=== PATIENT | male | born 1970 | race Caucasian/White ===

== ENCOUNTER 2017-11-28 04:09 | Inpatient (IN) ==
[2017-11-28] MEDS ORDERED: Aspirin 81 MG TAB.CHEW PO ONE (04:17)
[2017-11-28] MEDS ORDERED: *HR* Heparin 5,000 UNIT/ML VIAL IVP ONE (04:17)
[2017-11-28] MEDS ORDERED: 0.9 % Sodium Chloride 1,000 ML IVC ONE (04:17)
[2017-11-28] MEDS ORDERED: *HR* Ticagrelor 90 MG TABLET PO ONE (04:17)
[2017-11-28] MEDS ORDERED: *HR* Heparin 5,000 UNIT/ML VIAL IVP PRN ×2 (04:17)
[2017-11-28] MEDS ORDERED: *HR* Ticagrelor 90 MG TABLET ONE (04:17)
[2017-11-28] MEDS ORDERED: 0.9 % Sodium Chloride 1,000 ML ONE (04:18)
[2017-11-28] MEDS ORDERED: Aspirin 81 MG TAB.CHEW ONE (04:18)
[2017-11-28] MEDS ORDERED: *HR* Heparin 5,000 UNIT/ML VIAL ONE (04:18)
--- NOTE | 2017-11-28 04:24 | Emergency Department Note ---
Disposition Clinical Impression: ST elevation myocardial infarction (STEMI) Qualifiers: Involved coronary artery: unspecified coronary artery Qualified Code(s): I21.3 - ST elevation (STEMI) myocardial infarction of unspecified site Disposition: Admitted As Inpatient Condition: Serious Referrals: Lisa Camacho D[facility]NER [Primary Care Provider] - Forms: ED Satisfaction Letter Chest Pain HPI - General Chief Complaint: ED Chest Pain Stated Complaint: Chest Pain Time Seen by Provider: 11/28/17 04:17 Source: patient Mode of arrival: private vehicle Limitations: no limitations Vital Signs Reviewed: Yes Nursing Notes Reviewed: Yes - History of Present Illness HPI Narrative: 47-year-old male history of alcohol use, diabetes who presents to the ER with a chief complaint of chest pain. Patient states onset of symptoms roughly 1 hour ago whenever he was out drinking. Describes it as pain in the center of his chest as well as shortness of breath and nausea. Denies prior history of cardiac disease. Onset (ago): hour(s) Duration: constant Onset: during rest Pain Location: substernal Severity: moderate Severity scale (1-10): 5 Pain Radiation: none Improves with: nothing Worsens with: nothing - Related Data Home Medications Medication Instructions Recorded Confirmed metFORMIN [Glucophage] 500 mg PO BID PRN 09/02/16 06/03/17 Mv,Minerals/FA/Lycopene/Ginkgo 1 tab PO DAILY 06/03/17 06/03/17 [One Daily For Men 50+ Adv Tab] Previous Rx's Medication Instructions Recorded HYDROcodone/Acet 5/325 mg [Apache 2 tab PO Q4H PRN #15 tab 06/03/17 5-325 mg] Allergies Allergy/AdvReac Type Severity Reaction Status Date / Time No Known Allergies Allergy Verified 06/03/17 13:03 All systems ED: reviewed and negative except as stated. Cardiovascular: Reports: chest pain Respiratory: Reports: dyspnea. Denies: cough Gastrointestinal: Reports: nausea. Denies: abdominal pain, vomiting Chest Pain PMH - Past Medical History Medical history: Reports: diabetes, other Surgical history: Reports: other Psychiatric history: Reports: no psych history - Social History Smoking Status: Current every day smoker Alcohol use: Reports: none Drug use: Reports: none Physical Exam - General Limitations: no limitations General appearance: alert, in no apparent distress - Head Head exam: atraumatic, normocephalic - Eye Eye exam: Present: normal appearance - ENT ENT exam: normal exam - Neck Neck exam: Present: normal inspection - Chest Chest inspection: Present: normal inspection, symmetric chest wall rise - Respiratory Respiratory exam: Present: normal lung sounds bilaterally - Cardiovascular Cardiovascular exam: Present: normal rhythm, tachycardia, normal heart sounds - Abdominal Exam Abdominal exam: Present: soft, Non-Tender. Absent: tenderness - Extremities Exam Extremities exam: Present: normal inspection, full ROM - Expanded Upper Extremity Exam Shoulder exam: Present: normal inspection, full ROM Arm exam: Present: normal inspection, full ROM Elbow exam: Present: normal inspection, full ROM Forearm/Wrist exam: Present: normal inspection, full ROM Hand exam: Present: normal inspection, full ROM - Expanded Lower Extremity Exam Hip/Pelvis exam: Present: normal inspection, full ROM Upper leg exam: Present: normal inspection, full ROM Knee exam: Present: normal inspection, full ROM Lower leg exam: Present: normal inspection, full ROM Ankle exam: Present: normal inspection, full ROM Foot/toe exam: Present: normal inspection, full ROM - Skin Skin exam: Present: warm, dry Course Course Narrative: STEMI alert called at 19:14. Plan to speak with the rn family , chest x-ray, labs, aspirin, Brilinta, heparin and nitroglycerin drips. - Consultations Consultation #1: Dr. Barragan rn family paged. Time: 04:21 Consultation #2: Spoke with the rn family Dr. Barragan discussed patient's history and exam EKG findings and current interventions. He will be in for [facility] intervention. Time: 04:32 Vital Signs Temperature 97.3 F L 11/28/17 04:13 Pulse Rate 111 11/28/17 04:13 Respiratory Rate 22 11/28/17 04:13 Blood Pressure 166/111 11/28/17 04:13 O2 Sat by Pulse Oximetry 99 11/28/17 04:13 Temperature 97.3 F L 11/28/17 04:13 Pulse Rate 117 11/28/17 04:27 Respiratory Rate 20 11/28/17 04:27 Blood Pressure 164/123 11/28/17 04:27 O2 Sat by Pulse Oximetry 100 11/28/17 04:27 Oxygen Delivery Oxygen Delivery Room Air Chest Pain - MDM Narrative Medical decision making narrative: 47-year-old male with chest pain for one hour. History of alcohol use and diabetes. Dyspnea chest pain diaphoresis and nausea here. EKG with inferior wall STEMI. Hypotensive on arrival. Patient given aspirin, Brilinta, heparin and nitroglycerin drips. Case discussed with the rn family. Plan to go to the [facility] emergently for intervention. - EKG Data EKG attestation: Yes I reviewed and interpreted this EKG. EKG results narrative: EKG demonstrates tachycardia with a rate of 110. Prolonged QRS ration of 133. There are significant ST elevations in the inferior leads with reciprocal significant ST depressions in the anterior leads. STEMI Heart Score - Score History: Highly Suspicious EKG: Significant ST-Depression Age: 45-65 Risk Factors: 1-2 risk factors Troponin: Less than normal limit HEART Score Total: 6 Attestation Statement - Attestation Attestation: I examined this patient and my medical decision-making was reviewed with the Resident Physician. I agree with the documented findings, disposition and treatment plan as described except to the extent set forth below. Patient presents with inferior wall STEMI. Reports all call use this evening. Aspirin , heparin, [place], nitroglycerin infusion.
[2017-11-28] MEDS: Nitroglycerin 25 MG/250 ML INFUS..BTL IVC SCH (04:32)
[2017-11-28] MEDS: Heparin 25,000 UNIT/500 ML D5W 25,000 UNIT/500 ML BAG IVC SCH (04:33)
[2017-11-28 04:43] LABS: Basophils # 0.1 K/mcL (0.0-0.2); Basophils % 0.3 %; Hematocrit 47.9 % (37.5-50.1); Hemoglobin 15.4 g/dL (12.9-16.9); Immature Granulocytes % 0.3 % (0-4); Lymphocytes # 1.7 K/mcL (0.6-4.6); Lymphocytes % 8.9 %; Mean Corpuscular HGB Conc 32.2 g/dL (31.6-35.5); Mean Corpuscular Hemoglobin 27.3 pg (28.0-33.3); Mean Corpuscular Volume 84.8 fL (83.0-100.0); Mean Platelet Volume 9.9 fL (9.4-12.4); Monocytes # 0.6 K/mcL (0.0-1.3); Monocytes % 3.3 %; Neutrophils # 16.1 K/mcL (1.6-8.9); Platelet Count 282 K/mcL (140-400); Red Blood Count 5.65 M/mcL (4.19-5.50); Segmented Neutrophils % 87.2 %
[2017-11-28 04:47] LABS: INR 1.1; Prothrombin Time 12.1 Seconds (9.4-12.1)
[2017-11-28] MEDS ORDERED: *HR* Heparin 10,000 UNIT/10 ML VIAL ONE (04:49)
[2017-11-28] MEDS ORDERED: 0.9 % Sodium Chloride 2,000 ML ONE (04:49)
[2017-11-28] MEDS ORDERED: Heparin 1,000 UNITS/500 mL 500 ML ONE (04:49)
[2017-11-28 04:50] LABS: Activated Partial Thrombo Time 38.2 Seconds (26.0-36.0)
[2017-11-28] MEDS ORDERED: Nitroglycerin 1,000 MCG/10 ML VIAL IV ONE (04:50)
[2017-11-28] MEDS ORDERED: ISOVUE-370 200 ML INFUS..BTL IV ONE (04:50)
[2017-11-28 05:10] LABS: Troponin I 0.04 ng/mL (< 0.04)
[2017-11-28] MEDS ORDERED: *HR* Midazolam HCl 2 MG/2 ML VIAL ONE (05:21)
[2017-11-28 05:22] LABS: BUN/Creatinine Ratio 15 (6-26); Blood Urea Nitrogen 13 mg/dL (6-20); Calcium 9.9 mg/dL (8.6-10.3); Carbon Dioxide 23 mEq/L (23-29); Chloride 99 mEq/L (98-107); Glucose 155 mg/dL (70-105); Magnesium 1.7 mg/dL (1.6-2.6); Osmolality,Calculated 281 (280-300); Potassium 4.3 mEq/L (3.5-5.1); Sodium 134 mEq/L (136-145); eGFR For African Americans > 60 (> 60); eGFR For Non-African Americans > 60 (> 60)
--- NOTE | 2017-11-28 06:13 | Pre-Sedation Evaluation ---
Pre-sedation evaluation - Pre-sedation checklist Date of procedure: 11/28/17 Procedure: left heart cath, possible PCI Recent Vitals: Last Vital Signs Temp 97.3 F L 11/28/17 04:13 Pulse 104 11/28/17 04:55 Resp 25 11/28/17 05:00 BP 163/119 11/28/17 05:00 Pulse Ox 100 11/28/17 04:55 H&P (including ROS) documented in medical record: Yes (Pre sedation, H&P performed prior to procedure, documented post procedure ) Airway Assessment: Patient can open mouth completely, TMJ function normal Dentition: No loose teeth or bridges Possible difficult airway: No ASA Classification *see protocol: CLASS IV-Severe systemic disease/constant threat to pt's life Plan of Care: Pt appropriate candidate for procedure/moderate/conscious sedation , Risks/benefits of procedure/sedation discussed w/ patient/family, If not NPO; Risk of intake outweiged by necessity to perform procedure
--- NOTE | 2017-11-28 06:15 | Invasive Diagnostic Lab Proc ---
Name: Glenn Herbert Date of Study: 11/28/2017 Date: 1970 Ht: 74.0in Medical Record#: [id number] Age: 47 Wt: 264.55lb Gender: Male BSA: 2.45 Order #: [id number] BMI: 33.97 Physicians Procedure Physician: Naveed Barragan DO Referring MD: Lisa Camacho CNP Referring MD: Staff Name Position Time In Marvin Alves RN Monitor 05:03 AM Shaila Barajas RT (R) Scrub 05:03 AM Rodrick Rodriguez RN Manufacturers Representative 05:03 AM Indications Indication STEMI Procedures Performed Procedure PRQ CARD REVASC TX 1 VSL Pre-Procedure Checklist Informed consent is complete signed and on chart. H&P is on chart. ID band is on and ID verified with patient. Pt not NPO for procedure and MD aware. The procedure was described for the patient and questions were answered. Blood Pressure: 108/58 ECG is on chart. Rhythm: Sinus Tachycardia Plan of Care Patient will tolerate the procedure without complications. Adequate level of comfort will be maintained. Hemodynamics will remain stable Patient will recover from procedure without complications. Respiratory function will be maintained. Cardiac rhythm will remain stable. Patient temperature will be maintained. Patient and/or family have verbalized understanding of the procedure. Patient Education Chief Complaint/Reason for Test: Cardiac Cath Developmental Category: Adult (18-64 years) Developmentally Appropriate for Age: Yes Learning Barriers: None Education Needs: Procedure Education Method: Verbal Information Taught: Cardiac Cath Educational Evaluation: Able to repeat information Intravenous Access Time IV Size Location DC'd Fluid/Drip Rate Units RN 18g 1 1/4" Patent On Arrival Rt Antecubital Rodrick Rodriguez RN 18g 1 1/4" Patent On Arrival Lt upper arm 0.9NaCl 25 ml/hr Rodrick Rodriguez RN Allergies NKA Vital Signs Time BP (mmHg) HR (bpm) O2 Sat. RR (bpm) LOC 05:14 AM / % 5 = Fully awake and oriented or at pre-proc level 05:14 AM / % 4 = Oriented but drowsy 05:29 AM / % 4 = Oriented but drowsy 05:07 AM 108 / 58 101 100 % 05:13 AM 160 / 113 103 100 % 05:17 AM 153 / 119 102 100 % 05:22 AM 148 / 111 103 100 % 05:27 AM 154 / 120 101 100 % 05:32 AM 153 / 112 98 100 % 05:37 AM 131 / 94 94 97 % 05:42 AM 132 / 95 88 97 % 05:47 AM 134 / 89 89 98 % 05:52 AM 125 / 92 93 98 % Procedural Medications Time Medication Dose Units Method Given By 05:12 AM Oxygen 2 L/min nasal cannula Rodrick Rodriguez RN 05:20 AM Lidocaine 2% 10 ml Subcutaneous Naveed Barragan DO 05:22 AM Versed 1 mg Intravenous Rodrick Rodriguez RN 05:31 AM Heparin 3000 units Intravenous Rodrick Rodriguez RN 05:05 AM Nitroglycerin 5 mcg/min Intravenous Rodrick Rodriguez RN 05:34 AM Nitroglycerin 100 mcg Intracoronary Naveed Barragan DO ASA Classification: Emergent Procedure: ASA score is assumed Osmin Score Preprocedure Postprocedure Activity 2- Moves 4 extremities sustained head lift Activity Circulation 2- SBP +/= 20 points of pre-anesthetic level Circulation Consciousness 2- Awake and alert oriented x 3 Consciousness O2 Saturation 2- Able to maintain O2 satruation of 92% on room air O2 Saturation Respiratory 2- Able to deep breathe and cough well Respiratory Total Score 10 Total Score Contrast Agent: Isovue Diagnostic Contrast: 160 ml Total Contrast: 160 ml Fluoro Dose: 1210 mGy Activated Clotting Time Time Seconds to Clot 05:31 AM 188 05:49 AM 400 05:56 AM 178 Procedure Log Time Note Enter By 04:54 AM CathStat 05:03 AM Pt arrived to cardiovascular lab director 2 at 05:03 csmith 05:03 AM Marvin Alves RN Position: Monitor Time in: 05:03 csmith 05:03 AM Shaila Barajas RT (R) Position: Scrub Time in: 05:03 csmith 05:03 AM Rodrick Rodriguez RN Position: Manufacturers Representative Time in: 05:03 csmith 05:03 AM Patient charges- Angio tray pack, Navilyst 3mm J, Pulse Oximetry and ACIST tubing and transducer csmith 05:05 AM Time: 05:05 Nitroglycerin 5 mcg/min Intravenous Given by Rodrick Rodriguez RN csmith 05:07 AM Vitals capture started with the following parameters, Patient=Adult, Interval=5 min, Initial Byqijeir=148 mmHg, Deflation Rate=5 mmHg, Cuff placed on Right Arm 05:07 AM DU=736 bpm, OYTV=748/58 mmhg, AkN3=531.0 %, Comment=st 05:10 AM Recorded ECG: WQ=818 Condition=Condition 1 05:13 AM Recorded ECG: IT=676 Condition=Condition 1 05:13 AM Time: 05:12 Oxygen on at 2 L/min per nasal cannula by Rodrick Rodriguez RN csmith 05:13 AM RV=954 bpm, KZZX=108/113 mmhg, NmD9=057.0 % 05:14 AM Time: 05:14 Patient comfortable and pain free: Yes csmith 05:14 AM Hair removed from procedure site in procedure lab using clippers. Bilateral groin prepped with Chloraprep by Marvin Alves RN, then patient was draped. Skin intact. csmith 05:14 AM Time: 05:14LOC: 5 = Fully awake and oriented or at pre-proc level csmith 05:16 AM chest pain reported to be 5/10 midsternal csmith 05:17 AM Marcus paged/called 05:04. csmith 05:17 AM Marcus responded and notified patient is ready 05:06 csmith 05:17 AM Procedure start 05:17 csmith 05:17 AM AE=775 bpm, GVEA=994/119 mmhg, IpE0=654.0 %, Comment=st 05:18 AM Physician arrived 05:15 csmith 05:18 AM Pressure channel 2 zeroed. 05:19 AM Time out performed according to hospital policy csmith 05:19 AM Clinical Presentation: STEMI or equivalent csmith 05:20 AM Time: 05:20 10 ml Lidocaine 2% to right groin Subcutaneous Given by Naveed Barragan DO csmith 05:21 AM Micro-Introducer Kit utilized for sheath placement csmith 05:21 AM Access obtained by percutaneous puncture. 6Fr 11cm Terumo [place] sheath placed in right Femoral artery. [id number] csmith 05:22 AM Time: 05:22 Versed 1 mg Intravenous Given by Rodrick Rodriguez RN csmith 05:22 AM AV=647 bpm, QJUI=751/111 mmhg, QfO6=485.0 %, Comment=st 05:22 AM 6Fr FL 4 catheter inserted over the wire DNC csmith 05:23 AM 0.035 145cm Navilyst 3mmJ wire [id number] csmith 05:23 AM Recorded Pressure: Ao, VF=439, Condition=Condition 1 (Aorta) Ao 131/97/112 05:24 AM LCA angiography performed in multiple views. csmith 05:24 AM Catheter removed csmith 05:26 AM Inflation device was opened. csmith 05:26 AM 6Fr JR4 Runway guide catheter was used to cannulate the PCI vessel successfully. reused? No csmith 05:26 AM Recorded Pressure: LV, CZ=567, Condition=Condition 1 (Left Ventricle) LV 142/11/18 05:26 AM Recorded Pressure: LV, Ao, AI=392, Condition=Condition 1 (Left Ventricle) LV 135/7/12, (Aorta) Ao 132/89/113 05:27 AM PCI lesion in Mid RCA. Pre Stenosis: 100 Pre JOSE Flow: 0: No Flow/No perfusion csmith 05:27 AM .014 Choice Extra Support 300cm guide wire across target lesion- successful. reused? No csmith 05:27 AM FV=009 bpm, VBRM=219/120 mmhg, LbV6=477.0 %, Comment=st 05:29 AM Time: 05:14 Patient comfortable and pain free: Yes csmith 05:29 AM Time: 05:14LOC: 4 = Oriented but drowsy csmith 05:29 AM guidewire past lesion at this time csmith 05:30 AM 3.5mm x 24mm Synergy drug-eluting stent across target lesion- successful Lot #[id number] csmith 05:31 AM At 05:31 the ACT was 188 seconds. csmith 05:31 AM Time: 05:31 Heparin 3000 units Intravenous Given by Rodrick Rodriguez RN csmith 05:32 AM nitroglycerin off at this time csmith 05:32 AM Stent deployed @ 14 beatriz for 15 seconds csmith 05:32 AM HR=98 bpm, YGSI=972/112 mmhg, WxL7=047.0 %, Comment=st 05:33 AM Recorded Pressure: Ao, HR=87, Condition=Condition 1 (Aorta) Ao 120/86/101 05:34 AM Time: 05:34 Nitroglycerin 100 mcg Intracoronary Given by Naveed Barragan DO csmith 05:35 AM Stent delivery system removed intact. csmith 05:35 AM 4.0 mm x 15mm NC Emerge balloon across target lesion- successful. reused? No csmith 05:37 AM Balloon inflated @ 15 beatriz for 11 seconds csmith 05:37 AM HR=94 bpm, DCML=803/94 mmhg, SpO2=97.0 %, Comment=sr 05:38 AM Balloon inflated @ 15 beatriz for 12 seconds csmith 05:38 AM Balloon catheter removed intact. csmith 05:39 AM act drawn and running csmith 05:40 AM 5.0 mm x 15mm NC Emerge balloon across target lesion- successful. reused? No csmith 05:41 AM Balloon inflated @ 14 beatriz for 10 seconds csmith 05:42 AM Balloon inflated @ 14 beatriz for 10 seconds csmith 05:42 AM HR=88 bpm, YDIQ=331/95 mmhg, SpO2=97.0 %, Comment=st 05:44 AM Time: 05:29LOC: 4 = Oriented but drowsy csmith 05:44 AM Time: 05:29 Patient comfortable and pain free: Yes csmith 05:45 AM Balloon catheter removed intact. csmith 05:45 AM 4.0mm x 24mm Synergy drug-eluting stent across target lesion- successful Lot #[id number] csmith 05:46 AM Stent deployed @ 15 beatriz for 15 seconds csmith 05:47 AM Stent balloon reinflated @ 15 beatriz for 13 seconds csmith 05:47 AM HR=89 bpm, EOST=182/89 mmhg, SpO2=98.0 %, Comment=st 05:48 AM Catheter removed csmith 05:49 AM Balloon catheter removed intact. csmith 05:49 AM At 05:49 the ACT was 400+ seconds. csmith 05:49 AM Lesion found in Distal RCA. Pre Stenosis: 30 Pre JOSE Flow: 3: Complete and Brisk Flow/Perfusion csmith 05:52 AM Bolus angiogram of right Femoral complete: hand injection csmith 05:52 AM Procedure completed at 05:52 csmith 05:52 AM Did you address JOSE flow and Dominance? Yes csmith 05:52 AM HR=93 bpm, ZXOT=001/92 mmhg, SpO2=98.0 %, Comment=st 05:53 AM Sign out completed: Radiation Dose 1210 mGy Fluoro Time: 5.7 Isovue 370 - 200ml contrast 160 ml given by Naveed Barragan DO. Complications: DissectionCardiac Rehab Consult needed: YesConfirmed administered medications: Yes csmith 05:53 AM Sheath left in place to be pulled on floor/holding area csmith 05:53 AM Estimated Blood Loss: minimal csmith 05:53 AM Post ECG NSR, st segments improved csmith 05:53 AM Post Blood Pressure 125/92 csmith 05:53 AM Recorded ECG: HR=89 Condition=Condition 1 05:53 AM 05:53 Post Pulses Bilateral DP 2+ csmith 05:54 AM Information taught Cardiac Cath and PCI csmith 05:54 AM Education needs Responsibilities of Patient in Care csmith 05:54 AM Learning barriers :None csmith 05:54 AM Education Methods Verbal csmith 05:54 AM Education evaluation Able to repeat information csmith 05:54 AM Opsite applied csmith 05:54 AM Plavix, Effient or Brilinta given No - given in ED csmith 05:54 AM Family placed in consult room. csmith 05:56 AM At 05:56 the ACT was 178 seconds. csmith 05:59 AM Lesion found in 1st Diagonal. Pre Stenosis: 90 Pre JOSE Flow: 3: Complete and Brisk Flow/Perfusion csmith 06:02 AM Patient out of room: 06:02 csmith Complications Complication Dissection Hemodynamics Pressures Site Systolic/A Wave Diastolic/V Wave Mean AO 131 97 112 LV 142 11 18 LV 135 7 12 AO 132 89 113 AO 120 86 101 Post Procedure Information Blood Pressure: 125/92 mmHg Rhythm: NSR Post procedural instructions were given Closure Device Time Device Success/Fail Manual Compression Site Checks Time Location Status Staff Sheath In? Note 05:57 AM Rt Groin No bleeding/ No Hematoma Shaila Barajas RT (R) Pulses Time Site Pre-Procedure Post-Procedure Note 5:53:00 AM Bilateral DP 2+ Updated by Marvin Alves RN on 11/28/2017 6:08:16 AM electronically signed on 11/28/2017 6:08:37 AM with status of Final
--- NOTE | 2017-11-28 06:23 | Cardiology History & Physical ---
Date of Encounter: 11/28/17 Time of Encounter: 05:15 Assessment and Plan (1) ST elevation myocardial infarction (STEMI) Current Visit: Yes Status: Acute The assessment and plan as outlined above was discussed with the patient and/or family members who expressed understanding and agreement. All questions were answered. Acute STEMI with ongoing chest pain, EKG changes despite medical tx, discussed options, recomend emergency LHC/poss, pt agrees to proceed. Qualifiers: Involved coronary artery: right coronary artery Qualified Code(s): I21.11 - ST elevation (STEMI) myocardial infarction involving right coronary artery (2) Diabetes Current Visit: Yes Status: Chronic The assessment and plan as outlined above was discussed with the patient and/or family members who expressed understanding and agreement. All questions were answered. 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 All questions were answered. symptoms controlled at present. Qualifiers: Esophagitis presence: without esophagitis Qualified Code(s): K21.9 - Gastro -esophageal reflux disease without esophagitis (4) Tobacco dependence Current Visit: Yes Status: Chronic The assessment and plan as outlined above was discussed with the patient and/or family members who expressed understanding and agreement. All questions were answered. resumed smoking one month ago. (5) Nephrolithiasis Current Visit: Yes Status: Chronic The assessment and plan as outlined above was discussed with the patient and/or family members who expressed understanding and agreement. All questions were answered. previous hematuria, now resoleved post lithotrypsy. History of Present Illness Chief complaint: chest pain HPI: Mr. Herbert is a 47 year old male who presented to the ER with complaints of mid sternal chest pain, severe 10/10, sudden onset while at rest, approximately 2:30 am, associated with nild nausea and shortness of breath, had difficulty taking a deep breath which improved with medical tx in ER. He now reports 5/10 chest pain, pressure mid sternum. Nausea and shortness of breath have resolved , no radiation. 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 Past Med Surg Social Fam HX - Past Medical History Medical history: COPD, diabetes, GERD, kidney stones, liver disease, other Additional medical history: SMOKER. GERD. SLEEP APNEA. KIDNEY STONES. COPD, emphysema, umbilical hernia. HEPATOMEGALY Psychiatric history: no psych history - Past Surgical History Surgical History: other Additional surgical history: Back sx. UMBILICAL HERNIA REPAIR X1. INGUINAL HERNIA REPAIR. COLONOSCOPY. neck surgery - Social History Smoking Status: Current every day smoker Smokeless Tobacco Status: No Alcohol use: none Drug use: none - Family History Father Living Status: Hx Family Cardiac Disorders: Yes Hx Family Respiratory Disorders: No Hx Family Cancer: No Hx Family GI Disorders: No Hx Family Endocrine Disorder: Yes Hx Family Neuromuscular Disorders: No Hx Family Neurologic Disorders: No Hx Family HEENT Disorders: No Hx Family Autoimmune Disorders: No Medications and Allergies metFORMIN [Glucophage] 500 mg PO BID PRN 09/02/16 [History] Mv,Minerals/FA/Lycopene/Ginkgo [One Daily For Men 50+ Adv Tab] 1 tab PO DAILY [History] 3 Allergy/AdvReac Type Severity Reaction Status Date / Time No Known Allergies Allergy Verified 06/03/17 13:03 All Systems Review: The remainder of the systems were reviewed and are negative - Cardiovascular Cardiovascular: chest pain at rest, other (first event today. ) - Respiratory Respiratory: cough (mild non productive cough since resuming smoking. ) - Gastrointestinal Gastrointestinal: nausea (heart burn) Physical Examination Vital Signs, Last 4 Hours Pulse Resp BP Pulse Ox 11/28/17 05:00 25 163/119 11/28/17 04:55 104 20 163/119 100 11/28/17 04:50 106 13 153/109 99 11/28/17 04:47 107 11 166/121 100 General: Conversant (complians of 11/04 mid sternal chest pain. ) HEENT: Atraumatic, Normocephaly, Mucus Membranes Moist Neck: No JVD, Normal carotid pulses Cardiac: Reg Rate and Rhythm, Normal S1 and S2, No Murmur Lungs: Normal Breath Sounds, No Wheeze, Rales, Rhonchi Neuro: Alert and responsive, No focal deficits noted Abdomen: Soft, Non-Tender Skin: No rashes noted on visualized skin Musculoskeletal: No Chest Wall Tenderness Extremities: No Clubbing, No Cyanosis, No Edema, Normal Pulses Results 11/28/17 04:25 11/28/17 04:25 - EKG Interpretation EKG results cardiology: personally reviewed (NSR, acute inferior OH, meets STEMI criteria.)
[2017-11-28] MEDS ORDERED: Nitroglycerin 0.4 MG TAB.SUBL SL PRN (07:05)
[2017-11-28] MEDS: *HR* Ticagrelor 90 MG TABLET PO SCH ×2 (08:24→21:27)
[2017-11-28] MEDS: Aspirin 81 MG TAB.CHEW PO SCH (08:24)
[2017-11-28] MEDS: 0.9 % Sodium Chloride 1,000 ML IVC SCH ×2 (08:25→18:25)
[2017-11-28] MEDS ORDERED: *HR* Atropine Sulfate 1 MG/10 ML SYRINGE ONE (10:16)
[2017-11-29] MEDS: 0.9 % Sodium Chloride 1,000 ML IVC SCH ×4 (03:50→22:45)
[2017-11-29 05:26] LABS: Basophils % 0.1 %; Eosinophils # 0.1 K/mcL (0.0-0.6); Eosinophils % 0.6 %; Hematocrit 41.7 % (37.5-50.1); Immature Granulocytes % 0.3 % (0-4); Lymphocytes # 2.4 K/mcL (0.6-4.6); Lymphocytes % 20.8 %; Mean Corpuscular HGB Conc 32.4 g/dL (31.6-35.5); Mean Corpuscular Hemoglobin 27.4 pg (28.0-33.3); Mean Corpuscular Volume 84.6 fL (83.0-100.0); Mean Platelet Volume 10.3 fL (9.4-12.4); Monocytes # 0.9 K/mcL (0.0-1.3); Monocytes % 7.6 %; Neutrophils # 8.2 K/mcL (1.6-8.9); Platelet Count 211 K/mcL (140-400); Red Blood Count 4.93 M/mcL (4.19-5.50); Red Cell Distribution Width 14.3 % (11.5-14.5); Segmented Neutrophils % 70.6 %
[2017-11-29 05:31] LABS: Hemoglobin 13.5 g/dL (12.9-16.9)
[2017-11-29 05:42] LABS: BUN/Creatinine Ratio 19 (6-26); Blood Urea Nitrogen 14 mg/dL (6-20); Calcium 8.7 mg/dL (8.6-10.3); Carbon Dioxide 23 mEq/L (23-29); Chloride 104 mEq/L (98-107); Glucose 118 mg/dL (70-105); Osmolality,Calculated 280 (280-300); Sodium 134 mEq/L (136-145); eGFR For African Americans > 60 (> 60); eGFR For Non-African Americans > 60 (> 60)
[2017-11-29] MEDS: Nitroglycerin 25 MG/250 ML INFUS..BTL IVC SCH (05:44)
[2017-11-29] MEDS: Heparin 25,000 UNIT/500 ML D5W 25,000 UNIT/500 ML BAG IVC SCH (05:44)
[2017-11-29] MEDS: *HR* Ticagrelor 90 MG TABLET PO SCH ×2 (09:05→21:44)
[2017-11-29] MEDS: Aspirin 81 MG TAB.CHEW PO SCH (09:05)
--- NOTE | 2017-11-29 11:51 | Cardiology Progress Note ---
Date of Encounter: 11/29/17 Time of Encounter: 11:45 Assessment and Plan (1) ST elevation myocardial infarction (STEMI) Current Visit: Yes Status: Acute S/P inferior STEMI 11/28/17 s/p ALEXA in mid and distal RCA. EF 45% on LHC. TTE resulted--LVEF 40%. Segmental LV systolic dysfunction. Mildly dilated left ventricle. Mild LVDD. RV size is not well evaluated. Normal function by Doppler. Mild mitral regurgitation. Mild pulmonary hypertension. The IVC is dilated. Pt denies chest pain or dyspnea overnight. Reports nosebleed yesterday and today. Reports palpitations yesterday, none today. DAPT (ASA ad Brilinta) uninterrupted x 1 year. Pt verbalizes understanding. Continue BB, Statin. Add low dose ACEi. Right femoral access site healing well. No bleeding, hematoma or ecchymosis noted. Post STEMI EKG improved. 12 hr tele AVG HR 61, SR, brief episode of what appears to be PAF with aberrancy. Continue to monitor, suspect secondary to reperfusion. Currently sinus rut, HR 50s at bedside. Continue to monitor another 24 hours. Step down today to regular floor. If no issues overnight, possible d/c home tomorrow. Mention of staged PCI as outpt. 90 % 1st diag. Will discuss with Dr. Barragan to coordinate. Qualifiers: Involved coronary artery: right coronary artery Qualified Code(s): I21.11 - ST elevation (STEMI) myocardial infarction involving right coronary artery (2) CAD (coronary artery disease) Current Visit: Yes Status: Acute As above, S/P STEMI and s/p ALEXA to mid and distal RCA. ASA, Brilinta, Statin, BB. Add low dose ACEi. Qualifiers: Coronary Disease-Associated Artery/Lesion type: [place] artery [place] vs. transplanted heart: [place] heart Associated angina: angina presence unspecified Qualified Code(s): I25.10 - Atherosclerotic heart disease of [place] coronary artery without angina pectoris (3) Ischemic cardiomyopathy Current Visit: Yes Status: Acute TTE EF 40%. Segmental LV systolic dysfunction. S/P ALEXA to mid and distal RCA. Switch Lopressor to Toprol XL. Add low dose ACEi. Pt euvolemic on exam. Recheck TTE as outpt 3 months s/p revascularization. (4) Diabetes Current Visit: Yes Status: Chronic On Metformin at home. Currently on hold S/P LHC. Plan to resume on d/c. Qualifiers: Diabetes mellitus type: type 2 Diabetes mellitus nursing home insulin use: without nursing home use Diabetes mellitus complication status: without complication Qualified Code(s): E11.9 - Type 2 diabetes mellitus without complications (5) Tobacco dependence Current Visit: Yes Status: Chronic Smoking cessation counseling given. Declines need for nicotine patches. (6) PAF (paroxysmal atrial fibrillation) Current Visit: Yes Status: Acute Pt reports intermittent palpitations yesterday. Telemetry reviewed. Brief episodes of what appears to be A-Fib with aberrancy, likely secondary to reperfusion s/p STEMI. Continue to monitor for recurrence. [id number] (CAD, CHF, DM). Will not anticoagulate at this time given epistaxis on DAPT and since episodes are infrequent. Consider Holter as outpt to further evaluate for recurrence. (7) Epistaxis Current Visit: Yes Status: Acute Reports nosebleeds yesterday and today, likely secondary to receiving heparin and DAPT. HGB stable. Continue to monitor H&H. Discussion w patient/family: The assessment and plan as outlined above was discussed with the patient and/or family members who expressed understanding and agreement. All questions were answered. Thank you for involving us in the care of your patient. Please call with any questions. I will discuss all the above with Dr. Gonzalez and make changes as necessary. Subjective Principal diagnosis: STEMI Interval history: S/P inferior STEMI 11/28/17 s/p ALEXA in mid and distal RCA. EF 45% on LHC. TTE resulted--LVEF 40%. Segmental LV systolic dysfunction. Mildly dilated left ventricle. Mild left ventricular diastolic dysfunction. RV size is not well evaluated. Normal function by Doppler. Mild mitral regurgitation. Mild pulmonary hypertension. The IVC is dilated. Pt denies chest pain or dyspnea overnight. Reports nosebleed yesterday and today. Reports palpitations yesterday, none today. Objective Vital Signs, Last 4 Hours Temp Pulse Resp BP Pulse Ox 11/29/17 11:00 58 14 118/64 94 11/29/17 10:00 66 12 116/85 95 11/29/17 09:00 68 14 121/84 97 11/29/17 08:32 98.2 F 11/29/17 08:00 60 16 116/83 95 Vital Signs Temp Pulse Resp BP Pulse Ox 11/29/17 11:00 58 14 118/64 94 11/29/17 10:00 66 12 116/85 95 11/29/17 09:00 68 14 121/84 97 11/29/17 08:32 98.2 F 11/29/17 08:00 60 16 116/83 95 11/29/17 07:00 59 14 110/85 93 11/29/17 06:00 57 16 106/79 93 11/29/17 05:00 64 16 112/84 97 11/29/17 04:07 98.2 F 11/29/17 04:00 61 18 106/85 95 11/29/17 03:00 61 16 114/86 94 11/29/17 02:00 60 14 109/85 94 11/29/17 01:00 67 14 124/90 93 11/29/17 00:55 98.7 F 11/29/17 00:00 60 16 111/93 94 11/28/17 23:00 59 16 114/91 93 11/28/17 22:11 98.6 F 11/28/17 22:00 66 16 117/95 97 11/28/17 21:00 64 16 121/91 95 11/28/17 20:00 64 18 110/85 96 11/28/17 19:00 70 16 105/85 93 11/28/17 18:00 67 18 113/77 95 11/28/17 17:00 73 18 113/87 94 11/28/17 16:00 64 16 103/78 92 11/28/17 15:00 97.5 F L 66 16 104/77 95 11/28/17 14:00 66 16 106/86 95 11/28/17 13:00 73 16 115/89 97 11/28/17 12:00 75 18 115/88 95 Intake and Output 11/28/17 11/29/17 11/29/17 23:59 07:59 15:59 Intake Total 1000 / 1000 1000 / 1000 Output Total 275 / 275 650 / 650 200 / 200 Balance 725 / 725 350 / 350 -200 / -200 Intake: IV Fluids 1000 / 1000 1000 / 1000 0.9 % Sodium Chloride 1,000 ML 1000 / 1000 1000 / 1000 @ 100 mls/hr IVC .Q10H RYLIE Rx#: [id number] Output: Urine 275 / 275 650 / 650 200 / 200 Other: Weight 119.4 kg Blood Glucose* 134 Patient Weight 11/29/17 23:59 Weight 119.4 kg General: Conversant, No Apparent Distress HEENT: Atraumatic, Normocephaly, Mucus Membranes Moist Neck: No JVD, Normal carotid pulses Cardiac: Reg Rate and Rhythm, Normal S1 and S2, No Murmur Lungs: Normal Breath Sounds, No Wheeze, Rales, Rhonchi Neuro: Alert and responsive, No focal deficits noted Abdomen: Soft, Non-Tender Skin: Other (right femoral access site healing well. No bleeding, hematoma or ecchymosis noted.) Musculoskeletal: No Chest Wall Tenderness Extremities: No Clubbing, No Cyanosis, No Edema, Normal Pulses Results 11/29/17 04:48 11/29/17 04:48 Lab Results 11/29/17 11/29/17 04:48 04:48 WBC 11.7 H Hgb 13.5 D Hct 41.7 Plt Count 211 Sodium 134 L Potassium 4.0 Chloride 104 Carbon Dioxide 23 BUN 14 Creatinine 0.73 Glucose 118 H Calcium 8.7 Short CBC 11/29/17 Range/Units 04:48 WBC 11.7 H (4.3-11.1) K/mcL Hgb 13.5 D (12.9-16.9) g/dL Hct 41.7 (37.5-50.1) % Plt Count 211 (140-400) K/mcL Neutrophils # 8.2 (1.6-8.9) K/mcL BMP 11/29/17 Range/Units 04:48 Sodium 134 L (136-145) mEq/L Potassium 4.0 (3.5-5.1) mEq/L Chloride 104 (98-107) mEq/L Carbon Dioxide 23 (23-29) mEq/L BUN 14 (6-20) mg/dL Creatinine 0.73 (0.70-1.30) mg/dL Glucose 118 H (70-105) mg/dL Calcium 8.7 (8.6-10.3) mg/dL Impressions Echocardiogram 11/29/17 07:05 Impressions: LVEF 40%. Segmental LV systolic dysfunction. Mildly dilated left ventricle. Mild left ventricular diastolic dysfunction. RV size is not well evaluated. Normal function by Doppler. Mild mitral regurgitation. Mild pulmonary hypertension. The IVC is dilated. Left Ventricular Wall Motion: Rest Echo Findings The mid inferior, basal inferior, mid inferior lateral and basal inferior lateral escobar were hypokinetic. All other wall segments showed normal motion. Findings: Study Quality * Technically adequate exam. ECG Findings * Normal sinus rhythm. Left Ventricle * LVEF 40%. * Mildly dilated left ventricle. * Mild left ventricular diastolic dysfunction. Right Ventricle * RV size is not well evaluated. Normal function by Doppler. Left Atrium * Normal left atrial size. Right Atrium * Normal right atrial size. Aortic Valve * No aortic regurgitation. * Aortic valve not well visualized. * No aortic stenosis. Mitral Valve * No mitral stenosis. * Mild mitral regurgitation. * Normal mitral valve structure. Tricuspid Valve * Tricuspid valve not well visualized. * Trace tricuspid regurgitation. * Estimated RA pressure is 20 mmHg. * Estimated RVSP is 36 mmHg. * Mild pulmonary hypertension. Pulmonic Valve * Pulmonic valve is not well visualized. * No pulmonic stenosis. * No pulmonic regurgitation. Pulmonary Artery * Pulmonary artery not well visualized. Aorta * Normally sized aortic root. Interatrial Septum * No evidence of PFO by color Doppler. Pericardium * There is no pericardial effusion present. IVC * The IVC is dilated. * < 50% respiratory change. Active Medications Acetaminophen (Tylenol) 500 mg PO Q6H PRN PRN Reason: Mild Pain Stop: 05/30/18 07:06 Aspirin (Aspirin) 81 mg PO DAILY [facility] Stop: 05/30/18 09:01 Last Admin: 11/29/17 09:05 Dose: 81 mg Heparin Sodium (Porcine) (Heparin) 4,000 unit IVP Q6HR PRN PRN Reason: SEE COMMENTS Stop: 05/30/18 04:18 Heparin Sodium (Porcine) (Heparin) 2,000 unit IVP Q6H PRN PRN Reason: SEE COMMENTS Stop: 05/30/18 04:18 Heparin Sodium/Dextrose (Heparin 25,000 Unit/500 Ml D5w) 25,000 unit in 500 mls @ 19.954 mls/hr IVC .Q24H RYLIE; 8.3 UNIT/KG/HR PRN Reason: Protocol Stop: 05/30/18 04:31 Last Admin: 11/29/17 05:44 Dose: Not Given Nitroglycerin (Nitroglycerin Premix 25 Mg/250 Ml) 25 mg in 250 mls @ 3 mls/hr IVC .Q24H RYLIE PRN Reason: 5 MCG/MIN Stop: 05/30/18 04:31 Last Admin: 11/29/17 05:44 Dose: Not Given Sodium Chloride (0.9 % Sodium Chloride) 1,000 mls @ 100 mls/hr IVC .Q10H RYLIE Stop: 05/30/18 07:16 Last Admin: 11/29/17 03:50 Dose: 100 mls/hr Metoprolol Tartrate (Lopressor) 12.5 mg PO BID RYLIE Stop: 05/30/18 09:01 Last Admin: 11/29/17 09:05 Dose: 12.5 mg Nitroglycerin (Nitroglycerin) 0.4 mg SL Q5MIN PRN PRN Reason: Chest Pain Stop: 05/30/18 07:06 Rosuvastatin Calcium (Crestor) 20 mg PO HS RYLIE Stop: 05/30/18 21:01 Last Admin: 11/28/17 21:27 Dose: 20 mg Ticagrelor (Brilinta) 90 mg PO BID RYLIE Stop: 05/30/18 09:01 Last Admin: 11/29/17 09:05 Dose: 90 mg - Imaging and Cardiology Echo: report reviewed - EKG Interpretation EKG results cardiology: personally reviewed, other (12 hr tele AVG HR 61, SR, possible brief PAF episode overnight) - VTE Documentation of Mechanical Device: Intermittent pneumatic compression device Consult Discharge Plan - Plan Referrals: Lisa Camacho, [employer] [Primary Care Provider] -
[2017-11-29] MEDS ORDERED: Nitroglycerin 0.4 MG TAB.SUBL SL PRN (17:03)
[2017-11-29] MEDS: *HR* Heparin 5,000 UNIT/ML VIAL SQ SCH (17:23)
--- NOTE | 2017-11-29 17:38 | Electrocardiograph Report ---
[address] [place] [address] Test Date: 2017-11-28 Pat Name: Glenn Herbert Department: 109 Room: 12 Gender: M Cigarette Vendor: : [id number] Requested By: Olegario Weiss Order Number: [id number] Reading MD: Olga Grey Measurements Intervals [place] Rate: 88 P: 63 CT: 159 QRS: -25 QRSD: 116 T: -54 QT: 407 QTc: 452 Interpretive Statements SINUS RHYTHM LATERAL MYOCARDIAL INFARCTION, OF INDETERMINATE AGE INFERIOR MYOCARDIAL INFARCTION, PROBABLY RECENT ACUTE [place] Electronically Signed On 11-29-2017 17:37:01 EDT by Olga Grey
[2017-11-29] MEDS ORDERED: *HR* Heparin 5,000 UNIT/ML VIAL SQ SCH (18:00)
[2017-11-30] MEDS: *HR* Heparin 5,000 UNIT/ML VIAL SQ SCH (05:02)
[2017-11-30 06:57] VITALS: BP 113/82
[2017-11-30 08:50] LABS: Basophils % 0.3 %
[2017-11-30] MEDS ORDERED: Aspirin 81 MG TAB.CHEW PO SCH (09:00)
[2017-11-30] MEDS ORDERED: Metoprolol XL (24 HR) Succ 25 MG TAB.ER.24H PO SCH ×2 (09:00)
[2017-11-30 09:03] LABS: Eosinophils # 0.1 K/mcL (0.0-0.6); Eosinophils % 0.9 %; Hematocrit 40.2 % (37.5-50.1); Hemoglobin 13.1 g/dL (12.9-16.9); Immature Granulocytes % 0.4 % (0-4); Lymphocytes # 2.7 K/mcL (0.6-4.6); Lymphocytes % 26.3 %; Mean Corpuscular HGB Conc 32.6 g/dL (31.6-35.5); Mean Corpuscular Hemoglobin 27.7 pg (28.0-33.3); Mean Platelet Volume 11.1 fL (9.4-12.4); Monocytes # 0.6 K/mcL (0.0-1.3); Neutrophils # 6.9 K/mcL (1.6-8.9); Nucleated Red Blood Cells 0.2 /100 WBC (0); Platelet Count 248 K/mcL (140-400); Red Blood Count 4.73 M/mcL (4.19-5.50); Red Cell Distribution Width 14.2 % (11.5-14.5); Segmented Neutrophils % 66.1 %
[2017-11-30 09:07] LABS: BUN/Creatinine Ratio 16 (6-26); Blood Urea Nitrogen 12 mg/dL (6-20); Calcium 8.7 mg/dL (8.6-10.3); Carbon Dioxide 20 mEq/L (23-29); Chloride 107 mEq/L (98-107); Glucose 114 mg/dL (70-105); Osmolality,Calculated 281 (280-300); Potassium 4.4 mEq/L (3.5-5.1); Sodium 135 mEq/L (136-145); eGFR For African Americans > 60 (> 60); eGFR For Non-African Americans > 60 (> 60)
[2017-11-30] MEDS: *HR* Ticagrelor 90 MG TABLET PO SCH (09:17)
--- NOTE | 2017-11-30 10:00 | Discharge Summary ---
Orders not resulted at time of discharge: Pending orders 11/28/17 07:05 ECG 12 lead ECG [ECG] Routine Date of Encounter: 11/30/17 Time of Encounter: 09:58 - Discharge Diagnosis (1) ST elevation myocardial infarction (STEMI) Priority: Primary Status: Acute Qualifiers: Involved coronary artery: right coronary artery Qualified Code(s): I21.11 - ST elevation (STEMI) myocardial infarction involving right coronary artery (2) CAD (coronary artery disease) Priority: Primary Status: Acute Qualifiers: Coronary Disease-Associated Artery/Lesion type: [place] artery [place] vs. transplanted heart: [place] heart Associated angina: angina presence unspecified Qualified Code(s): I25.10 - Atherosclerotic heart disease of [place] coronary artery without angina pectoris (3) Ischemic cardiomyopathy Priority: Secondary Status: Acute (4) Diabetes Priority: Secondary Status: Chronic Qualifiers: Diabetes mellitus type: type 2 Diabetes mellitus siderographer insulin use: without siderographer use Diabetes mellitus complication status: without complication Qualified Code(s): E11.9 - Type 2 diabetes mellitus without complications (5) Tobacco dependence Priority: Secondary Status: Chronic - Hospital Course Hospital course: Mr. Herbert is a 47 year old male with PMH of DM, tobacco abuse, kidney stones that presented as an inferior STEMI 11/28/17 s/p ALEXA in mid and distal RCA. Remaining 90% 1st diag that is recommended to be staged as outpt by Dr. Barragan. TTE LVEF 40%. Segmental LV systolic dysfunction. Mildly dilated left ventricle. Mild LVDD. Mild MR. Mild phtn. Pt euvolemic on exam. Recheck TTE as outpt 3 months s/p revascularization. Pt denies chest pain or dyspnea. Reported nosebleed / and /4, likely secondary to heparin gtt and DAPT. No epistaxis in 24 hours. DAPT (ASA ad Brilinta) uninterrupted x 1 year. Pt verbalizes understanding. Continue BB, Statin, ACEi. Right femoral access site healing well. No bleeding, hematoma or ecchymosis noted. Restrictions discussed. Reported palpitations 6/3. Brief episode PAF with aberrancy on tele 11/28, suspect secondary to reperfusion. Has since maintained SR. Do not recommend senior living AC since episode was brief and within 24 hours of STEMI. Consider AC if recurrence of PAF in the future. Post STEMI EKG improved. Reports bright red blood per rectum after bowel movement yesterday. Per pt, long hx of hemorrhoids and this bleeding was no worse than what he typically has with hemorrhoids. H&H stable. Recommend he call our office and report to ED if bleeding worsens. Labs and vitals stable. D/C home in stable condition. Coordinate outpt follow- up with Dr. Barragan in 1 week and discuss staged PCI of 1st diag at that time. Declines need for nicotine patches. Smoking cessation counseling given. Time spent discussing smoking cessation with patient: 3 to 10 minutes - Time Spent with Patient Total time spent providing and/or coordinating discharge services: Less than 30 minutes - Discharge Medications Prescriptions: Nitroglycerin 0.4 mg SL Q5MIN PRN #30 tab.subl PRN Reason: Chest Pain Aspirin 81 mg PO DAILY #30 tab.chew Lisinopril [Zestril] 2.5 mg PO DAILY #30 tablet Metoprolol XL (24 HR) Succ [Toprol Xl] 25 mg PO DAILY #30 tab.er.24h Rosuvastatin [Crestor] 20 mg PO HS #30 tablet Ticagrelor [Brilinta] 90 mg PO BID #60 tablet Home Medications: metFORMIN [Glucophage] 500 mg PO BID PRN 09/02/16 [History] Mv,Minerals/FA/Lycopene/Ginkgo [One Daily For Men 50+ Adv Tab] 1 tab PO DAILY [History] Potassium Citrate [Urocit-K] 1,080 mg PO BID 11/28/17 [History] Aspirin 81 mg PO DAILY #30 tab.chew 11/30/17 [Rx] Lisinopril [Zestril] 2.5 mg PO DAILY #30 tablet 11/30/17 [Rx] Metoprolol XL (24 HR) Succ [Toprol Xl] 25 mg PO DAILY #30 tab.er.24h 11/30/17 [ Rx] Nitroglycerin 0.4 mg SL Q5MIN PRN #30 tab.subl 11/30/17 [Rx] Rosuvastatin [Crestor] 20 mg PO HS #30 tablet 11/30/17 [Rx] Ticagrelor [Brilinta] 90 mg PO BID #60 tablet 11/30/17 [Rx] Allergies/Adverse Reactions: 3 Allergy/AdvReac Type Severity Reaction Status Date / Time No Known Allergies Allergy Verified 06/03/17 13:03 Date of admission: 11/28/17 04:46 Primary care physician: Lisa Camacho CNP Consults: 11/28/17 07:05 Consult to Cardiac Rehabilitation-Phase1 [CONS] Routine Comment: Reason for Consult: AMI Call Completed: Yes Consult to Nurse Navigator [CONS] Routine Comment: Discharging clinician: Sterling Owusu Anticipated date of discharge: 11/30/17 Physical Examination Vital Signs, Last 4 Hours Temp Pulse Resp BP Pulse Ox 11/30/17 06:56 98.0 F 58 16 113/82 97 Vital Signs Temp Pulse Resp BP Pulse Ox 11/30/17 06:56 98.0 F 58 16 113/82 97 11/30/17 04:00 98.1 F 55 16 104/72 96 11/30/17 00:56 98.1 F 62 16 102/83 95 11/30/17 00:17 98.3 F 11/30/17 00:00 58 16 87/46 96 11/29/17 21:07 98.2 F 11/29/17 20:00 60 16 99/70 95 11/29/17 17:56 60 14 113/83 97 11/29/17 16:00 74 16 99/69 96 11/29/17 14:00 66 14 113/69 96 11/29/17 12:00 97.6 F 59 16 112/84 95 11/29/17 11:00 58 14 118/64 94 Intake and Output 11/29/17 11/30/17 11/30/17 23:59 07:59 15:59 Intake Total 500 / 500 0 / 0 360 / 360 Output Total 1025 / 1025 625 / 625 Balance -525 / -525 -625 / -625 360 / 360 Intake: Oral 500 / 500 0 / 0 360 / 360 Output: Urine 1025 / 1025 625 / 625 Other: Meal Breakfast Percent of Meal Consumed 100% Stool Size Large Stool Consistency formed formed Stool Characteristics Normal for Patient Stool Color Brown Blood Tinged # Voids 1 # Bowel Movements 1 1 Blood Glucose* 205 104 General: Conversant, No Apparent Distress HEENT: Atraumatic, Normocephaly, Mucus Membranes Moist Neck: No JVD, Normal carotid pulses Cardiac: Reg Rate and Rhythm, Normal S1 and S2, No Murmur Lungs: Normal Breath Sounds, No Wheeze, Rales, Rhonchi Neuro: Alert and responsive, No focal deficits noted Abdomen: Soft, Non-Tender Skin: No rashes noted on visualized skin Musculoskeletal: No Chest Wall Tenderness Extremities: No Clubbing, No Cyanosis, No Edema, Normal Pulses - Patient Status Disposition: Home, Self-Care Condition: Fair Functional capacity at discharge: independent ambulation Overall status at discharge: patient is progressing back to baseline - Discharge Instructions Follow Up With: Lisa Camacho, BAG BAILER [Primary Care Provider] - Additional Instructions: RISK FACTORS: STOP SMOKING: If you smoke, STOP. Smoking or tobacco use significantly increases your risk of heart disease because nicotine causes the arteries to narrow or constrict. It also causes fats to stick to the artery. Your chances of having a heart attack are greatly increased if you continue to smoke. For more information, call the education line for smoking cessation 9-556-KAFIPIP EAT A LOW FAT/CHOLESTEROL/SODIUM DIET: This diet may help reduce your chances of having a heart attack. LIFTING: Avoid lifting anything more than 10 pounds for 5-7 days Prior to straining, laughing, sneezing and/or coughing, apply manual pressure directly over insertion site. ACTIVITY: You may walk or climb stairs as tolerated You can resume sexual activity as tolerated In general, you are encouraged to engage in a minimum of 30 minutes or more of moderate intensity physical activity, such as brisk walking, daily or at least 3 -4 times weekly BATHING Do not submerge the site into water (bath tub, hot tub, swimming pool) for 1 week. This can be a source for infection into the blood stream. You may shower after 24 hours SITE CARE: After 24 hours, you may remove the dressing and leave the site open to air. Keep the site clean and dry. Clean gently and pat dry. You can expect bruising and tenderness that gradually resolve within a week or two. Return to work as instructed per your physician Resume driving as instructed per physician Keep all scheduled follow up appointments Resume medications as instructed IMPORTANT: If prescribed a Platelet Aggregation Inhibitor such as, Plavix, Brilinta or Effient: Duration of therapy is minimum one year These medications are often used in combination with Aspirin in prevention of future heart attacks Never discontinue unless consult with your Flexible Nanny STROKE (CVA) Risk factors for a stroke are: Age, cigarette smoking, diabetes, excessive alcohol consumption, family history, high blood pressure, overweight, physical inactivity, prior stroke, heart attack, diagnosis of carotid artery stenosis or other artery disease. Warning signs: Sudden numbness or weakness of the face, arm or leg; especially on one side of the body, sudden confusion, trouble speaking or understanding, sudden trouble seeing in one or both eyes, sudden trouble walking, dizziness, loss of balance or coordination, sudden severe headache with no cause. Call 911 or go to the Emergency Room. CONGESTIVE HEART FAILURE: If you have been diagnosed with Congestive Heart Failure (CHF) and your symptoms return, make an appointment with your physician Weigh yourself daily. Notify your physician if you have a weight gain of two or more pounds in one day or five or more pounds in one week. If you experience any difficulty breathing, please call 911 BLEEDING: Although the risk of bleeding is minimal, it can happen. If you have any bleeding from the site, apply firm pressure above the puncture site for 10-15 minutes. If the bleeding does not stop, continue manual pressure and call 911 Contact your physician if: You develop a fever greater than 101 degrees Fahrenheit Your site becomes reddened or has any drainage You have an increase in pain or burning at the site or if a large knot forms at the site. If you experience chest pain, shortness of breath, dizziness, or extreme tiredness, stop the activity and rest. Please notify your physicians office if you experience any of these symptoms and they are not relieved by rest please call 911! - Diet and Activity Activity: increase activity as tolerated Diet: low fat, low cholesterol, low salt diet - VTE Documentation of Mechanical Device: Intermittent pneumatic compression device
== END 2017-11-30 11:53 | disposition home or self-care (01) | DRG 247 ==
LOC: EMEROO 04:09 → ICNU 04:46 → 2NENU 11-30 00:32
PROVIDERS: ADMIT Internal Medicine Cardiovascular Disease; ATTEND Internal Medicine Cardiovascular Disease

== ENCOUNTER 2017-12-14 22:48 | Inpatient (IN) ==
[2017-12-14 23:18] LABS: Basophils % 0.4 %; Eosinophils # 0.2 K/mcL (0.0-0.6); Eosinophils % 1.9 %; Hematocrit 44.8 % (37.5-50.1); Hemoglobin 14.3 g/dL (12.9-16.9); Immature Granulocytes % 0.3 % (0-4); Immature Platelets 2.9 % (1.1-6.1); Lymphocytes % 29.4 %; Mean Corpuscular HGB Conc 31.9 g/dL (31.6-35.5); Mean Corpuscular Hemoglobin 27.9 pg (28.0-33.3); Mean Corpuscular Volume 87.5 fL (83.0-100.0); Monocytes # 0.6 K/mcL (0.0-1.3); Monocytes % 6.3 %; Neutrophils # 6.3 K/mcL (1.6-8.9); Platelet Count 262 K/mcL (140-400); Red Blood Count 5.12 M/mcL (4.19-5.50); Red Cell Distribution Width 13.5 % (11.5-14.5); Segmented Neutrophils % 61.7 %
[2017-12-14 23:27] LABS: INR 0.9; Prothrombin Time 9.9 Seconds (9.4-12.1)
[2017-12-14 23:30] LABS: Activated Partial Thrombo Time 37.5 Seconds (26.0-36.0)
[2017-12-14 23:40] LABS: BUN/Creatinine Ratio 24 (6-26); Blood Urea Nitrogen 18 mg/dL (6-20); Calcium 9.7 mg/dL (8.6-10.3); Carbon Dioxide 24 mEq/L (23-29); Chloride 107 mEq/L (98-107); Glucose 129 mg/dL (70-105); Osmolality,Calculated 296 (280-300); Potassium 3.9 mEq/L (3.5-5.1); Sodium 141 mEq/L (136-145); eGFR For African Americans > 60 (> 60); eGFR For Non-African Americans > 60 (> 60)
[2017-12-14 23:44] LABS: Troponin I 0.07 ng/mL (< 0.04)
[2017-12-14] MEDS ORDERED: Heparin 25,000 UNIT/500 ML D5W 25,000 UNIT/500 ML BAG IVC SCH (23:45)
[2017-12-14] MEDS ORDERED: *HR* Heparin 5,000 UNIT/ML VIAL IVP ONE (23:53)
[2017-12-14] MEDS ORDERED: *HR* Heparin 5,000 UNIT/ML VIAL IVP PRN ×2 (23:53)
--- NOTE | 2017-12-15 00:06 | Emergency Department Note ---
Disposition Clinical Impression: ACS (acute coronary syndrome) Disposition: Admitted As Inpatient Condition: Undetermined Chest Pain HPI - General Chief Complaint: ED Chest Pain Stated Complaint: cp Time Seen by Provider: 12/14/17 23:12 Source: patient, family Mode of arrival: private vehicle Limitations: no limitations Vital Signs Reviewed: Yes Nursing Notes Reviewed: Yes - History of Present Illness HPI Narrative: 47-year-old male with a history of an ID on 11/27/17 with a cardiac catheter, non- insulin-dependent diabetes, JAMIE, emphysema presents emergency Department with " a flutter" and feeling like his heart was "slowing down" making him "losing my breath" intermittently since 2199. Patient states the symptoms have been going on all day however it became progressively worse after 2199. He states at the time he was eating and was sitting. Patient denies any chest pain, recent illness, fever, chills, difficulty breathing, dyspnea, edema. He denies being outside in the heat regularly. Patient is scheduled for another heart catheter on 12/20/17. Pt complaint: other Onset (ago): hour(s) Duration: intermittent, gradually worsening Onset: during rest Severity scale (1-10): 0 Improves with: nothing Worsens with: nothing Context: other Treatments prior to arrival chest pain: none - Related Data Home Medications Medication Instructions Recorded Confirmed metFORMIN [Glucophage] 500 mg PO BID PRN 09/02/16 12/15/17 Mv,Minerals/FA/Lycopene/Ginkgo 1 tab PO DAILY 06/03/17 12/15/17 [One Daily For Men 50+ Adv Tab] Potassium Citrate [Urocit-K] 1,080 mg PO BID 11/28/17 12/15/17 Previous Rx's Medication Instructions Recorded Aspirin 81 mg PO DAILY #30 tab.chew 11/30/17 Lisinopril [Zestril] 2.5 mg PO DAILY #30 tablet 11/30/17 Metoprolol XL (24 HR) Succ [Toprol 25 mg PO DAILY #30 tab.er.24h 11/30/17 Xl] Nitroglycerin 0.4 mg SL Q5MIN PRN #30 tab.subl 11/30/17 Rosuvastatin [Crestor] 20 mg PO HS #30 tablet 11/30/17 Ticagrelor [Brilinta] 90 mg PO BID #60 tablet 11/30/17 Allergies Allergy/AdvReac Type Severity Reaction Status Date / Time No Known Allergies Allergy Verified 12/14/17 22:49 All systems ED: reviewed and negative except as stated. Review of Systems: As Per HPI Chest Pain PMH - Past Medical History Medical history: Reports: COPD, diabetes, GERD, kidney stones, liver disease, myocardial infarction, other Surgical history: Reports: other Psychiatric history: Reports: no psych history - Social History Smoking Status: Former smoker Alcohol use: Reports: none Drug use: Reports: none Physical Exam - General Limitations: no limitations General appearance: alert, in no apparent distress - Head Head exam: atraumatic, normocephalic, normal inspection - Eye Eye exam: Present: normal appearance, PERRL, EOMI - ENT ENT exam: normal exam, mucous membranes moist - Neck Neck exam: Present: normal inspection, full ROM, trachea midline - Chest Chest inspection: Present: normal inspection, symmetric chest wall rise - Respiratory Respiratory exam: Present: normal lung sounds bilaterally - Cardiovascular Cardiovascular exam: Present: regular rate, normal rhythm, normal heart sounds - Abdominal Exam Abdominal exam: Present: soft, Non-Tender. Absent: tenderness, distention, guarding, rebound, rigidity - Extremities Exam Extremities exam: Present: normal inspection, full ROM. Absent: tenderness, pedal edema - Back Exam Back exam: Present: normal inspection, full ROM. Absent: tenderness - Neurological Exam Neurological exam: Present: alert, oriented X3 - Psychiatric Psychiatric exam: Present: normal affect, normal mood - Skin Skin exam: Present: warm, dry, intact, normal color Course Course Narrative: Nontoxic appearing, well-hydrated, well-developed male distress. patient without diaphoresis. respirations are easy and even. he appears well. color is appropriate. physical exam benign without edema. ekgs 2 reveal inverted t waves however there is no stemi. ekgs were obtained 15 minutes apart without any changes. Pt normotensive, a-febrile, non-tachycardic. Chest x-ray returns negative, UA negative, labs benign with exception of a troponin is 0.07, review of previous troponins shows a troponin of 0.04 pre- heart catheterization on 11/28/17. I spoke with Dr. Gonzalez regarding elevated troponin, presentation, subjective and objective findings. Dr. Gonzalez recommends treating as ACS with a heparin drip and trending troponins. We will need admitted to hospitalist services. - Reevaluation(s) Reevaluation #1: Spoke with hospitalist who is agreeable to take patient. Patient and family are agreeable to plan of care. There is no change pacer assessment and he is resting comfortably at this time. Time: 00:31 Vital Signs Temperature 97.6 F 12/14/17 22:49 Pulse Rate 76 12/14/17 22:49 Respiratory Rate 16 12/14/17 22:49 Blood Pressure 113/73 12/14/17 22:49 O2 Sat by Pulse Oximetry 96 12/14/17 22:49 Temperature 97.6 F 12/14/17 22:49 Pulse Rate 67 12/14/17 23:54 Respiratory Rate 16 12/15/17 01:16 Blood Pressure 106/60 12/15/17 01:16 O2 Sat by Pulse Oximetry 94 12/14/17 23:54 Oxygen Delivery Oxygen Delivery Room Air Chest Pain - Lab Data Result diagrams: 12/15/17 03:25 12/15/17 03:25 Lab Results 12/14/17 12/14/17 12/14/17 Range/Units 22:53 23:03 23:23 WBC 10.2 (4.3-11.1) K/mcL RBC 5.12 (4.19-5.50) M/mcL Hgb 14.3 (12.9-16.9) g/dL Hct 44.8 (37.5-50.1) % MCV 87.5 (83.0-100.0) fL MCH 27.9 L (28.0-33.3) pg MCHC 31.9 (31.6-35.5) g/dL RDW 13.5 (11.5-14.5) % Plt Count 262 (140-400) K/mcL MPV 10.0 (9.4-12.4) fL Immature Gran % 0.3 (0-4) % Seg Neutrophils % 61.7 % Lymphocytes % 29.4 % Monocytes % 6.3 % Eosinophils % 1.9 % Basophils % 0.4 % Neutrophils # 6.3 (1.6-8.9) K/mcL Lymphocytes # 3.0 (0.6-4.6) K/mcL Monocytes # 0.6 (0.0-1.3) K/mcL Eosinophils # 0.2 (0.0-0.6) K/mcL Basophils # 0.0 (0.0-0.2) K/mcL Immature Plt Fraction 2.9 (1.1-6.1) % PT 9.9 (9.4-12.1) Seconds INR 0.9 APTT 37.5 H (26.0-36.0) Seconds Sodium 141 (136-145) mEq/L Potassium 3.9 (3.5-5.1) mEq/L Chloride 107 (98-107) mEq/L Carbon Dioxide 24 (23-29) mEq/L BUN 18 (6-20) mg/dL Creatinine 0.76 (0.70-1.30) mg/dL Est GFR ( Amer) > 60 (> 60) Est GFR (Non-Af Amer) > 60 (> 60) BUN/Creatinine Ratio 24 (6-26) Glucose 129 H (70-105) mg/dL Calculated Osmolality 296 (280-300) Calcium 9.7 (8.6-10.3) mg/dL Troponin I 0.07 H* (< 0.04) ng/mL Heart Score - Score History: Highly Suspicious EKG: Normal Age: 45-65 Risk Factors: Equal/Greater than 3 risk factor or history of atherosclerotic disease Troponin: 1-3x normal limit HEART Score Total: 6 Attestation Statement - Attestation Attestation: I examined this patient and my medical decision-making was reviewed with the Resident Physician. I agree with the documented findings, disposition and treatment plan as described except to the extent set forth below. Findings consistent with possible ACS. Plan to admit to hospital for further management , serial EKGs, [place] cardiac biomarkers, consult the on-call cardiology who requests heparinization.
--- NOTE | 2017-12-15 01:43 | Internal Med History&Physical ---
Date of Encounter: 12/15/17 Time of Encounter: 01:39 Assessment and Plan (1) CAD (coronary artery disease) Current visit: Yes Status: Acute Patient seen and examined. Plan is pending attending evaluation and attestation. 1. Patient presenting with more palpitations than chest pain. However, his troponin is elevated. Unclear at this point if this is due to new ischemic changes or if this is trending down from his previous admission and is now s/p cath with 2 stent placement 2. We will trend troponins and EKGs if he develops any pain 3. Cardiology consulted from ED 4. Continue heparin drip, per cardiology 5. Maintain nothing by mouth except meds 6. Patient scheduled for heart catheter in 5 days, will likely consult with cardiology to see if they would complete the procedure while he is here 7. Continue home medications s/p stent placement Qualifiers: Coronary Disease-Associated Artery/Lesion type: [place] artery [place] vs. transplanted heart: [place] heart Associated angina: angina presence unspecified Qualified Code(s): I25.10 - Atherosclerotic heart disease of [place] coronary artery without angina pectoris (2) Heart palpitations Current visit: Yes Status: Acute 1. Maintain technical intern throughout hospital stay 2. We will check magnesium and TSH (3) Diabetes Current visit: Yes Status: Chronic 1. 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 Continue home meds 2. GI prophylaxis while nothing by mouth Qualifiers: Esophagitis presence: without esophagitis Qualified Code(s): K21.9 - Gastro -esophageal reflux disease without esophagitis (5) Tobacco dependence Current visit: Yes Status: Chronic 1. Patient reportedly has not smoked since his FL on 12/25. We will provide nicotine patch if necessary. Encouraged to continue not smoking (6) DVT prophylaxis Current visit: Yes Status: Acute 1. Patient on heparin gtt 2. Will reevaluate when off gtt Internal Medicine - H&P: HPI Chief complaint: Palpitations Admitted From: Emergency Dept Plans for Post Hospital Care: Home History of present illness: Mr. Herbert is a 47 year old male with history of recent STEMI (11/28/17) with 2 stent placement in the mid and distal RCA. He was noted to have severe one- vessel coronary artery disease and his EF was 45%. According to the patient and family, he is scheduled for another catheter in 5 days for a stent placement on the "left side of his heart" . This was going to be performed by Dr. Barragan. However, he was going to be out of town and they state that Dr. Aquino would be doing the procedure. As far as the patient's presentation today , he states that he has been doing well since after the catheter and has started to try to exercise again. He states that at around 10:00 this evening he started noticing that his heart was beating irregularly. He states that it felt like his heart was slowing down, skipping beats and then beating very fast and hard. He states that this made him feel very flushed and warm and that the sensation would cabezas into his head and give him a mild headache. He states also made him feel short of breath but that if he took a deep breath and the sensation would go away. His headache would go away as well. He states that it did not last long, just a few seconds at a time, but that the episodes were becoming more frequent and that is what prompted his visit to the ER. He denies any chest pain or shortness of breath. He has no headache, changes in vision, neck pain, fever, chills, abdominal pain, nausea, vomiting, diarrhea, melena, hematochezia, hematuria, dysuria, pain or swelling in his legs or rash. He states that he has not smoked cigarettes since his heart catheter and has been trying to eat healthier. He has been compliant with all of his medications. Past Med Surg Social Fam HX - Past Medical History Attestation: Yes The following information was validated with the patient. Source: patient Medical history: COPD, diabetes, GERD, kidney stones, liver disease, myocardial infarction, other Additional medical history: SMOKER. GERD. SLEEP APNEA. KIDNEY STONES. COPD, emphysema, umbilical hernia. HEPATOMEGALY Psychiatric history: no psych history - Past Surgical History Surgical History: other Additional surgical history: Back sx. UMBILICAL HERNIA REPAIR X1. INGUINAL HERNIA REPAIR. COLONOSCOPY. neck surgery. CARDIAC STENTS X 2 - Social History Smoking Status: Former smoker Smokeless Tobacco Status: No Alcohol use: none Drug use: none - Family History Father Living Status: Hx Family Cardiac Disorders: Yes Hx Family Respiratory Disorders: No Hx Family Cancer: No Hx Family GI Disorders: No Hx Family Endocrine Disorder: Yes Hx Family Neuromuscular Disorders: No Hx Family Neurologic Disorders: No Hx Family HEENT Disorders: No Hx Family Autoimmune Disorders: No Internal Medicine - H&P: Meds metFORMIN [Glucophage] 500 mg PO BID PRN 09/02/16 [History] Mv,Minerals/FA/Lycopene/Ginkgo [One Daily For Men 50+ Adv Tab] 1 tab PO DAILY [History] Potassium Citrate [Urocit-K] 1,080 mg PO BID 11/28/17 [History] Aspirin 81 mg PO DAILY #30 tab.chew 11/30/17 [Rx] Lisinopril [Zestril] 2.5 mg PO DAILY #30 tablet 11/30/17 [Rx] Metoprolol XL (24 HR) Succ [Toprol Xl] 25 mg PO DAILY #30 tab.er.24h 11/30/17 [ Rx] Nitroglycerin 0.4 mg SL Q5MIN PRN #30 tab.subl 11/30/17 [Rx] Rosuvastatin [Crestor] 20 mg PO HS #30 tablet 11/30/17 [Rx] Ticagrelor [Brilinta] 90 mg PO BID #60 tablet 11/30/17 [Rx] 3 Allergy/AdvReac Type Severity Reaction Status Date / Time No Known Allergies Allergy Verified 12/14/17 22:49 All Systems PM: A 10-system review of systems was performed and is negative for pertinent findings except as documented above in the HPI. Review of systems: As reviewed in the HPI. All other systems reviewed are negative or normal. - Constitutional Vitals: Temp Pulse Resp BP Pulse Ox 97.6 F 67 16 106/60 94 12/14/17 22:49 12/14/17 23:54 12/15/17 01:16 12/15/17 01:16 12/14/17 23:54 General appearance: Present: A&O X 3, pleasant, no acute distress, obese - Head Head exam: Present: atraumatic, normocephalic - Eye Eye exam: Present: PERRL, conjuntiva pink, sclera anicteric Pupils: Present: PERRL - Neck Neck exam general surgery: Present: supple, trachea midline. Absent: lymphadenopathy - Respiratory Respiratory exam: Present: CTAB. Absent: accessory muscle use, rales, rhonchi, wheezes - Cardiovascular Cardiovascular exam: Present: RRR, +S1, +S2. Absent: diastolic murmur, gallop, rubs, systolic murmur - GI/Abdominal GI/Abdominal exam: Present: normal bowel sounds, soft, no peritoneal signs. Absent: distended, tenderness - Extremities Exam Extremities exam: Present: normal capillary refill, normal inspection, warm, radial pulses palpable and symmetrical. Absent: calf tenderness, cyanotic, pedal edema - Neurological Exam Neurological exam: Present: CN II-XII intact, oriented X3, no focal deficits. Absent: facial droop, speech deficit - Skin Skin exam: Present: dry, intact Internal Med - H&P Results - Labs CBC & Chem 7: 12/14/17 23:23 12/14/17 23:03
[2017-12-15] MEDS ORDERED: Naloxone 0.4 MG/ML INJ IVP PRN (01:56)
[2017-12-15] MEDS ORDERED: Nitroglycerin 0.4 MG TAB.SUBL SL PRN (02:00)
[2017-12-15] MEDS: Ringers Solution, Lactated 1,000 ML IVC SCH ×2 (02:36→11:46)
[2017-12-15 04:11] LABS: Basophils % 0.2 %; Eosinophils # 0.2 K/mcL (0.0-0.6); Eosinophils % 2.5 %; Hematocrit 40.1 % (37.5-50.1); Hemoglobin 12.8 g/dL (12.9-16.9); Immature Granulocytes % 0.8 % (0-4); Lymphocytes % 34.9 %; Mean Corpuscular HGB Conc 31.9 g/dL (31.6-35.5); Mean Corpuscular Hemoglobin 27.8 pg (28.0-33.3); Mean Corpuscular Volume 87.2 fL (83.0-100.0); Mean Platelet Volume 10.2 fL (9.4-12.4); Monocytes # 0.6 K/mcL (0.0-1.3); Monocytes % 6.4 %; Neutrophils # 4.7 K/mcL (1.6-8.9); Platelet Count 227 K/mcL (140-400); Red Cell Distribution Width 13.6 % (11.5-14.5); Segmented Neutrophils % 55.2 %
[2017-12-15 04:30] LABS: BUN/Creatinine Ratio 28 (6-26); Blood Urea Nitrogen 18 mg/dL (6-20); Carbon Dioxide 24 mEq/L (23-29); Chloride 109 mEq/L (98-107); Glucose 153 mg/dL (70-105); Magnesium 1.7 mg/dL (1.6-2.6); Osmolality,Calculated 297 (280-300); Phosphorous 3.4 mg/dL (2.7-4.5); Potassium 3.7 mEq/L (3.5-5.1); Sodium 141 mEq/L (136-145); eGFR For African Americans > 60 (> 60); eGFR For Non-African Americans > 60 (> 60)
[2017-12-15] MEDS: Famotidine 20 MG/2 ML VIAL IVP SCH ×2 (05:09→18:41)
[2017-12-15] MEDS: *HR* Ticagrelor 90 MG TABLET PO SCH ×2 (08:25→21:59)
[2017-12-15] MEDS: Metoprolol XL (24 HR) Succ 25 MG TAB.ER.24H PO SCH (08:25)
[2017-12-15] MEDS: Aspirin 81 MG TAB.CHEW PO SCH (08:25)
--- NOTE | 2017-12-15 08:59 | Pre-Sedation Evaluation ---
Pre-sedation evaluation - Pre-sedation checklist Date of procedure: 12/15/17 Procedure: left heart cath, possible PCI Recent Vitals: Last Vital Signs Temp 97.8 F 12/15/17 07:24 Pulse 64 12/15/17 07:24 Resp 16 12/15/17 07:24 BP 106/81 12/15/17 07:24 Pulse Ox 97 12/15/17 07:24 H&P (including ROS) documented in medical record: Yes (Pre sedation, H&P performed prior to procedure, documented post procedure ) Dentition: No loose teeth or bridges ASA Classification *see protocol: CLASS II-Mild systemic disease Plan of Care: Pt appropriate candidate for procedure/moderate/conscious sedation , Risks/benefits of procedure/sedation discussed w/ patient/family
--- NOTE | 2017-12-15 09:10 | Event Note ---
Date of Encounter: 12/15/17 Time of Encounter: 09:09 I saw and evaluated the patient. I reviewed the residents note and agree with findings and plan as documented in the residents note.
--- NOTE | 2017-12-15 09:32 | Cardiology Consult Note ---
<Sterling Owusu R - Last Filed: 12/15/17 09:36> Date of Encounter: 12/15/17 Time of Encounter: 09:27 Assessment and Plan (1) NSTEMI (non-ST elevated myocardial infarction) Current Visit: Yes Status: Acute Troponin 0.04, 0.07 x 2, 0.06. On heparin gtt. Recent inferior STEMI 11/28/17 with ALEXA to mid and distal RCA. Reports compliance with DAPT (ASA and Brilinta). Continue Statin, BB, ACEi. Remaining 90% 1st diag that was recommended to be staged as outpt--already scheduled. Given presentation with chest fluttering/palpitations, frequent PVCs and mild troponin elevation, recommend [facility] with staged PCI to 1st diag while inpt. R/B/A discussed. Pt agrees to proceed. TTE 11/2017 LVEF 40%. Segmental LV systolic dysfunction. Mild LVDD. Mild MR. Mild phtn. Continue to follow. (2) CAD (coronary artery disease) Current Visit: Yes Status: Acute As above, recent STEMI with ALEXA to RCA. Stage 1st diag today. ASA, Brilinta, Statin, BB, ACEi. Qualifiers: Coronary Disease-Associated Artery/Lesion type: [place] artery [place] vs. transplanted heart: [place] heart Associated angina: angina presence unspecified Qualified Code(s): I25.10 - Atherosclerotic heart disease of [place] coronary artery without angina pectoris (3) Ischemic cardiomyopathy Current Visit: No Status: Acute EF 40% on TTE. Euvolemic on exam. Continue BB, ACEi. Recheck TTE as outpt s/p revascularization. (4) PAF (paroxysmal atrial fibrillation) Current Visit: No Status: Acute During last hospital stay, pt had a brief episode PAF with aberrancy on tele 11/28 , suspected secondary to reperfusion. Did not recommend group home AC since episode was brief and within 24 hours of STEMI. Pt reports palpitations and fluttering. No PAF has been noted. EKG and telemetry shows SR with PVCs. BP currently will not allow BB increase. Discussion w patient/family: The assessment and plan as outlined above was discussed with the patient and/or family members who expressed understanding and agreement. All questions were answered. Thank you for involving us in the care of your patient. Please call with any questions. I will discuss all the above with Dr. Grey and make changes as necessary. History of Present Illness Consult date: 12/15/17 Consult reason: Elevated troponin Chief complaint: palpitations, fluttering History of present illness: Mr. Herbert is a 47 year old male with PMH of DM, tobacco abuse, kidney stones that presented as an inferior STEMI 11/28/17 s/p ALEXA in mid and distal RCA. Remaining 90% 1st diag that is recommended to be staged as outpt. TTE LVEF 40%. Segmental LV systolic dysfunction. Mildly dilated left ventricle. Mild LVDD. Mild MR. Mild phtn. Brief episode PAF with aberrancy on tele 11/28, suspected secondary to reperfusion. Did not recommend [employer] AC since episode was brief and within 24 hours of STEMI. Pt reports he was doing well until yesterday when he began experiencing palpitations and frequent "fluttering" in his chest. Denies actual pain or increase in dyspnea. Episodes of fluttering were becoming more frequent prompting ED evaluation. EKGs and telemetry reviewed, SR with PVCs. Troponins 0.04, 0.07 x2, 0.06. Cardiology consulted for further recs. Pt reports still having palpitations through the night. Reports compliance with DAPT. Past Med Surg Social Fam HX - Past Medical History Medical history: cardiomyopathy, CHF, COPD, coronary artery disease, diabetes, GERD, kidney stones, liver disease, myocardial infarction, other Additional medical history: SMOKER. GERD. SLEEP APNEA. KIDNEY STONES. COPD, emphysema, umbilical hernia. HEPATOMEGALY Psychiatric history: no psych history - Past Surgical History Surgical History: angioplasty/stent, other Additional surgical history: Back sx. UMBILICAL HERNIA REPAIR X1. INGUINAL HERNIA REPAIR. COLONOSCOPY. neck surgery. CARDIAC STENTS X 2 - Social History Smoking Status: Former smoker Smokeless Tobacco Status: No Alcohol use: none Drug use: none - Family History Mother Living Status: Hx Family Cardiac Disorders: Yes Father Living Status: Hx Family Cardiac Disorders: Yes Hx Family Respiratory Disorders: No Hx Family Cancer: No Hx Family GI Disorders: No Hx Family Endocrine Disorder: Yes Hx Family Neuromuscular Disorders: No Hx Family Neurologic Disorders: No Hx Family HEENT Disorders: No Hx Family Autoimmune Disorders: No Medications and Allergies metFORMIN [Glucophage] 500 mg PO BID PRN 09/02/16 [History] Mv,Minerals/FA/Lycopene/Ginkgo [One Daily For Men 50+ Adv Tab] 1 tab PO DAILY [History] Potassium Citrate [Urocit-K] 1,080 mg PO BID 11/28/17 [History] Aspirin 81 mg PO DAILY #30 tab.chew 11/30/17 [Rx] Lisinopril [Zestril] 2.5 mg PO DAILY #30 tablet 11/30/17 [Rx] Metoprolol XL (24 HR) Succ [Toprol Xl] 25 mg PO DAILY #30 tab.er.24h 11/30/17 [ Rx] Nitroglycerin 0.4 mg SL Q5MIN PRN #30 tab.subl 11/30/17 [Rx] Rosuvastatin [Crestor] 20 mg PO HS #30 tablet 11/30/17 [Rx] Ticagrelor [Brilinta] 90 mg PO BID #60 tablet 11/30/17 [Rx] 3 Allergy/AdvReac Type Severity Reaction Status Date / Time No Known Allergies Allergy Verified 12/15/17 07:26 All Systems Review: The remainder of the systems were reviewed and are negative - Cardiovascular Cardiovascular: as per HPI, palpitations Physical Examination Vital Signs, Last 4 Hours Temp Pulse Resp BP Pulse Ox 12/15/17 07:24 97.8 F 64 16 106/81 97 Vital Signs Temp Pulse Resp BP Pulse Ox 12/15/17 07:24 97.8 F 64 16 106/81 97 12/15/17 01:16 16 106/60 12/14/17 23:54 67 16 103/68 94 12/14/17 23:18 70 16 105/69 97 12/14/17 22:49 97.6 F 76 16 113/73 96 Intake and Output 12/14/17 12/15/17 12/15/17 23:59 07:59 15:59 Intake Total 125 / 125 Output Total 400 / 400 Balance -275 / -275 Intake: IV Fluids 125 / 125 Heparin 25,000 UNIT/500 ML D5W 125 / 125 25,000 unit In 500 ml @ 8.5 UNIT/KG/HR 19.895 mls/hr IVC . Q24H RYLIE Rx#:[id number] Output: Urine 400 / 400 Other: Meal NPO Percent of Meal Consumed 0% Weight 117.027 kg 121 kg Blood Glucose* 188 Patient Weight 12/15/17 23:59 Weight 121 kg General: Conversant, No Apparent Distress HEENT: Atraumatic, Normocephaly, Mucus Membranes Moist Neck: No JVD, Normal carotid pulses Cardiac: Reg Rate and Rhythm, Normal S1 and S2, No Murmur Lungs: Normal Breath Sounds, No Wheeze, Rales, Rhonchi Neuro: Alert and responsive, No focal deficits noted Abdomen: Soft, Non-Tender Skin: No rashes noted on visualized skin Musculoskeletal: No Chest Wall Tenderness Extremities: No Clubbing, No Cyanosis, No Edema, Normal Pulses Results 12/15/17 03:25 12/15/17 03:25 Lab Results 12/15/17 12/15/17 06:16 07:51 APTT 38.1 H Troponin I 0.06 H* Short CBC 12/15/17 12/14/17 Range/Units 03:25 23:23 WBC 8.6 10.2 (4.3-11.1) K/mcL Hgb 12.8 L D 14.3 (12.9-16.9) g/dL Hct 40.1 44.8 (37.5-50.1) % Plt Count 227 262 (140-400) K/mcL Neutrophils # 4.7 6.3 (1.6-8.9) K/mcL BMP 12/15/17 12/14/17 Range/Units 03:25 23:03 Sodium 141 141 (136-145) mEq/L Potassium 3.7 3.9 (3.5-5.1) mEq/L Chloride 109 H 107 (98-107) mEq/L Carbon Dioxide 24 24 (23-29) mEq/L BUN 18 18 (6-20) mg/dL Creatinine 0.64 L 0.76 (0.70-1.30) mg/dL Glucose 153 H 129 H (70-105) mg/dL Calcium 9.0 9.7 (8.6-10.3) mg/dL Cardiac Enzymes 12/15/17 12/15/17 12/14/17 Range/Units 07:51 03:25 23:03 Troponin I 0.06 H* 0.07 H* 0.07 H* (< 0.04) ng/mL Impressions Chest X-Ray 12/14/17 22:53 IMPRESSION: No acute process. D/ / Wilbur Kowalski MD / Wilbur Kowalski MD Interpreting Provider: Wilbur Kowalski MD Active Medications Aspirin (Aspirin) 81 mg PO DAILY RYLIE Stop: 06/16/18 09:01 Last Admin: 12/15/17 08:25 Dose: 81 mg Famotidine (Pepcid) 20 mg IVP Q12HR RYLIE PRN Reason: Protocol Stop: 06/16/18 06:01 Last Admin: 12/15/17 05:09 Dose: 20 mg Heparin Sodium (Porcine) (Heparin) 4,000 unit IVP Q6HR PRN PRN Reason: SEE COMMENTS Stop: 06/15/18 23:54 Heparin Sodium (Porcine) (Heparin) 2,000 unit IVP Q6H PRN PRN Reason: SEE COMMENTS Stop: 06/15/18 23:54 Heparin Sodium/Dextrose (Heparin 25,000 Unit/500 Ml D5w) 25,000 unit in 500 mls @ 19.895 mls/hr IVC .Q24H RYLIE; 8.5 UNIT/KG/HR PRN Reason: Protocol Stop: 06/15/18 23:46 Last Titration: 12/15/17 07:04 Dose: 12.5 unit/kg/hr, 29.257 mls/hr Lactated Ringer's (Lactated Ringers) 1,000 mls @ 100 mls/hr IVC .Q10H RYLIE Stop: 12/15/17 21:59 Last Admin: 12/15/17 02:36 Dose: 100 mls/hr Lisinopril (Zestril) 2.5 mg PO DAILY RYLIE PRN Reason: Protocol Stop: 06/16/18 09:01 Last Admin: 12/15/17 08:25 Dose: 2.5 mg Metoprolol Succinate (Toprol Xl) 25 mg PO DAILY RYLIE Stop: 06/16/18 09:01 Last Admin: 12/15/17 08:25 Dose: 25 mg Naloxone HCl (Narcan) 0.4 mg IVP Q2MIN PRN PRN Reason: SEE COMMENTS Stop: 06/16/18 01:57 Nitroglycerin (Nitroglycerin) 0.4 mg SL Q5MIN PRN PRN Reason: Chest Pain Stop: 06/16/18 02:01 Rosuvastatin Calcium (Crestor) 20 mg PO HS RYLIE Stop: 06/16/18 02:01 Last Admin: 12/15/17 02:36 Dose: Not Given Ticagrelor (Brilinta) 90 mg PO BID RYLIE Stop: 06/16/18 09:01 Last Admin: 12/15/17 08:25 Dose: 90 mg - Imaging and Cardiology Echo: report reviewed Cardiac cath: report reviewed - EKG Interpretation EKG results cardiology: personally reviewed (SR PVCs), other (12 hr tele AVG HR 69, PVCs, no significant pauses or arrhythmias noted.) Consult Discharge Plan - Plan Referrals: Lisa Camacho CNP [Primary Care Provider] - 12/24/17 9:00 am <Olga Grey - Last Filed: 12/15/17 13:37> Date of Encounter: 12/15/17 - Attending Attestation I examined this patient and my medical decision-making was reviewed with the [employer] SPECIALIST. I agree with the documented findings, disposition and treatment plan as described. Mr. Herbert presents with palpitations. Noted to have PVCs on telemetry. No acute ECG changes. Troponin flat and adynamic. Recommend continuing telemetry - noted to have a brief episode of AFIB after PCI during recent visit without documentation of recurrence. Otherwise, he has a remaining 90% Diag1 lesion that was planned for staged PCI. Given troponin elevation, PVCs have recommended proceeding. Patient is in agreement. Assessment and Plan Discussion w patient/family: The assessment and plan as outlined above was discussed with the patient and/or family members who expressed understanding and agreement. All questions were answered. Thank you for involving us in the care of your patient. Please call with any questions. History of Present Illness History of present illness: Mr. Herbert is a 47 year old male All Systems Review: The remainder of the systems were reviewed and are negative Physical Examination Vital Signs, Last 4 Hours Temp Pulse Resp BP Pulse Ox 12/15/17 11:38 98.0 F 62 18 112/76 99 Results 12/15/17 03:25 12/15/17 03:25 Lab Results 12/15/17 12/15/17 06:16 07:51 APTT 38.1 H Troponin I 0.06 H*
[2017-12-15 10:20] LABS: Bilirubin,Urine Negative (Negative); Blood,Urine Negative (Negative); Clarity,Urine Clear (Clear); Color,Urine Yellow (Yellow); Glucose,Urine (UA) 100 mg/dL (Normal); Ketones,Urine Negative (Negative); Leukocyte Esterase,Urine Negative (Negative); Nitrite,Urine Negative (Negative); PH,Urine 5.5 pH Units (5.0-8.0); Protein,Urine Trace mg/dL (Neg-Trace); Specific Gravity,Urine 1.029 (1.010-1.025); Urobilinogen,Urine Normal (Normal)
[2017-12-15 10:23] LABS: Bacteria,Urine None Seen per hpf (None-Few); Hyaline Casts,Urine None Seen per lpf (None-Few); RBC,Urine 0-3 per hpf (0-3); Squamous Epithelial Cell,Urine Few per lpf (None-Few); WBC,Urine 0-3 per hpf (0-3)
[2017-12-15] MEDS ORDERED: Heparin 1,000 UNITS/500 mL 500 ML ONE (12:22)
[2017-12-15] MEDS ORDERED: *HR* Heparin 10,000 UNIT/10 ML VIAL ONE (12:22)
[2017-12-15] MEDS ORDERED: Nitroglycerin 1,000 MCG/10 ML VIAL IV ONE (12:22)
[2017-12-15] MEDS ORDERED: ISOVUE-370 200 ML INFUS..BTL IV ONE (12:22)
[2017-12-15] MEDS ORDERED: 0.9 % Sodium Chloride 1,000 ML ONE ×2 (12:22→13:53)
[2017-12-15] MEDS ORDERED: Verapamil 5 MG/2 ML VIAL ONE (12:22)
--- NOTE | 2017-12-15 12:35 | Electrocardiograph Report ---
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
--- NOTE | 2017-12-15 12:35 | Electrocardiograph Report ---
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
--- NOTE | 2017-12-15 12:37 | Electrocardiograph Report ---
[address] [place] [address] Test Date: 2017-12-15 Pat Name: Glenn Herbert Department: 110 Room: 2N12 Gender: M Council Member: : 1970 Requested By: [id number] Order Number: [id number] Reading MD: Chad Diane Measurements Intervals [place] Rate: 69 P: 40 UT: 141 QRS: -24 QRSD: 115 T: -57 QT: 452 QTc: 471 Interpretive Statements SINUS RHYTHM WITH OCCASIONAL VENTRICULAR PREMATURE COMPLEXES LATERAL MYOCARDIAL INFARCTION, PROBABLY RECENT INFERIOR MYOCARDIAL INFARCTION, OF INDETERMINATE AGE ACUTE MN Electronically Signed On 12-15-2017 12:35:30 EDT by Chad Diane
[2017-12-15] MEDS ORDERED: *HR* Midazolam HCl 2 MG/2 ML VIAL ONE ×2 (13:53→14:12)
[2017-12-15] MEDS ORDERED: *HR* FentaNYL (PF) 100 MCG/2 ML VIAL ONE (13:53)
--- NOTE | 2017-12-15 15:04 | Invasive Diagnostic Lab Proc ---
Name: Glenn Herbert Date of Study: 12/15/2017 Date: 1970 Ht: 74.0in Medical Record#: [id number] Age: 47 Wt: 266.76lb Gender: Male BSA: 2.46 Order #: [id number] BMI: 34.23 Physicians Procedure Physician: Chad Diane MD, [facility] Referring MD: Referring MD: Staff Name Position Time In Shaila Barajas RT (R) Monitor 01:55 PM Antwan Barajasian RT (R) Scrub 01:55 PM Laura Weston RN Body Former 01:55 PM Indications Indication Non-Stemi Procedures Performed Procedure L HRT ARTERY/VENTRICLE ANGIO PRQ CARD STENT W/ANGIO ADDL Pre-Procedure Checklist Informed consent is complete signed and on chart. H&P is on chart. ID band is on and ID verified with patient. Patient NPO for procedure The procedure was described for the patient and questions were answered. ECG is on chart. Rhythm: NSR Plan of Care Patient will tolerate the procedure without complications. Adequate level of comfort will be maintained. Hemodynamics will remain stable Patient will recover from procedure without complications. Respiratory function will be maintained. Cardiac rhythm will remain stable. Patient temperature will be maintained. Patient and/or family have verbalized understanding of the procedure. Patient Education Chief Complaint/Reason for Test: Cardiac Cath Developmental Category: Adult (18-64 years) Developmentally Appropriate for Age: Yes Learning Barriers: None Education Needs: Procedure Education Method: Verbal Information Taught: Cardiac Cath Educational Evaluation: Able to repeat information Intravenous Access Time IV Size Location DC'd Fluid/Drip Rate Units RN 02:48 PM 20g 1 /" Patent On Arrival Lt Antecubital 0.9NaCl 25 ml/hr Laura Weston RN Allergies No Known Allergies Vital Signs Time BP (mmHg) HR (bpm) O2 Sat. RR (bpm) LOC 01:46 PM / % 5 = Fully awake and oriented or at pre-proc level 01:46 PM / % 4 = Oriented but drowsy 02:02 PM / % 4 = Oriented but drowsy 02:17 PM / % 4 = Oriented but drowsy 02:32 PM / % 4 = Oriented but drowsy 01:59 PM 127 / 82 60 100 % 02:04 PM 128 / 92 58 98 % 02:09 PM 129 / 72 58 99 % 02:14 PM 121 / 80 62 98 % 02:19 PM 126 / 71 61 97 % 02:24 PM 104 / 68 67 92 % 02:29 PM 119 / 68 61 97 % 02:34 PM 112 / 79 67 92 % 02:39 PM 103 / 61 62 98 % Procedural Medications Time Medication Dose Units Method Given By 01:56 PM Oxygen 2 L/min nasal cannula Laura Weston RN 02:00 PM Versed 2 mg Intravenous CorfuLaura carvalho RN 02:00 PM Fentanyl 50 mcg Intravenous Laura Weston RN 02:11 PM Lidocaine 2% 0.5 ml Subcutaneous Chad Diane MD, FACC 02:12 PM Versed 1 mg Intravenous Laura Weston RN 02:12 PM Fentanyl 25 mcg Intravenous EnricoLaura carvalho RN 02:17 PM Versed 1 mg Intravenous Laura Weston RN 02:17 PM Fentanyl 25 mcg Intravenous Laura Weston RN 02:18 PM Heparin 2000 units Nitroglycerin 200 mcg Verapamil 2.5 mg Intraarterial Chad Diane MD, FACC 02:22 PM Oxygen 4 L/min nasal cannula Laura Weston RN 02:33 PM Nitroglycerin 100 mcg Intracoronary Chad Diane MD 02:30 PM Heparin 2000 mg Intravenous Laura Weston RN ASA Classification: CLASS II- Mild systemic disease (i.e. well-controlled diabetes, hypertension, asthma, cigarette smoking) Osmin Score Preprocedure Postprocedure Activity 2- Moves 4 extremities sustained head lift Activity 2- Moves 4 extremities sustained head lift Circulation 2- SBP +/= 20 points of pre-anesthetic level Circulation 2- SBP +/= 20 points of pre-anesthetic level Consciousness 2- Awake and alert oriented x 3 Consciousness 2- Awake and alert oriented x 3 O2 Saturation 2- Able to maintain O2 satruation of 92% on room air O2 Saturation 2- Able to maintain O2 satruation of 92% on room air Respiratory 2- Able to deep breathe and cough well Respiratory 2- Able to deep breathe and cough well Total Score 10 Total Score 10 Contrast Agent: Isovue Diagnostic Contrast: 134 ml Total Contrast: 134 ml Fluoro Dose: 547 mGy Activated Clotting Time Time Seconds to Clot 02:28 PM 257 Procedure Log Time Note Enter By 01:46 PM Pt arrived to laborer chemical processing 1 at 13:46 twilson 01:46 PM Time: 13:46 Patient comfortable and pain free: Yes twilson 01:46 PM Time: 13:46LOC: 5 = Fully awake and oriented or at pre-proc level twilson :55 PM CathStat :55 PM Vitals capture started with the following parameters, Patient=Adult, Interval=5 min, Initial Ostkeafp=955 mmHg, Deflation Rate=3 mmHg, Cuff placed on Right Arm : PM Shaila Barajas RT (R) Position: Monitor Time in: : twilson :55 PM Braulio Barajas RT (R) Position: Scrub Time in: : twilson :55 PM Laura Weston RN Position: Body Former Time in: : twilson :55 PM Patient charges- Angio tray pack, Navilyst 3mm J, Pulse Oximetry and ACIST tubing and transducer twilson :55 PM Case Delayed no twilson :56 PM Vitals capture started with the following parameters, Patient=Adult, Interval=5 min, Initial Thbjalna=899 mmHg, Deflation Rate=3 mmHg, Cuff placed on Right Arm : PM Physician arrived 13: twilson :56 PM Meet and greet completed twilson :56 PM Sign in performed according to hospital policy. twilson :56 PM Procedure start 13:56 twilson :56 PM Time: 13:56 Oxygen on at 2 L/min per nasal cannula by Laura Weston RN twilson :58 PM Vitals capture started with the following parameters, Patient=Adult, Interval=5 min, Initial Gdwpllqn=807 mmHg, Deflation Rate=3 mmHg, Cuff placed on Right Arm :58 PM Recorded ECG: HR=58 Condition=Condition 1 :58 PM Hair removed from procedure site in procedure lab using clippers. Bilateral groin prepped with Chloraprep by Shaila Barajas (R), then patient was draped. Skin intact. twilson 01:59 PM HR=60 bpm, CIUV=018/82 mmhg, DkS5=200.0 % 02:00 PM Time: 14:00 Versed 2 mg Intravenous Given by Laura Weston RN twilson 02:00 PM Time: 14:00 Fentanyl 50 mcg Intravenous Given by Laura Weston RN twilson 02:02 PM Time: 13:46LOC: 4 = Oriented but drowsy twilson 02:02 PM Time: 13:46 Patient comfortable and pain free: Yes twilson 02:04 PM HR=58 bpm, WSPW=903/92 mmhg, SpO2=98.0 % 02:09 PM HR=58 bpm, GHWV=000/72 mmhg, SpO2=99.0 % 02:10 PM Pressure channel 1 zero failed. 02:10 PM Pressure channel 1 zeroed. 02:11 PM ASA Class CLASS II- Mild systemic disease (i.e. well-controlled diabetes, hypertension, asthma, cigarette smoking) twilson 02:11 PM Time out performed according to hospital policy twilson 02:11 PM Time: 14:11 0.5 ml Lidocaine 2% to right radial Subcutaneous Given by Chad Diane MD, [facility] twilson 02:12 PM Time: 14:12 Versed 1 mg Intravenous Given by Laura Weston RN twilson 02:12 PM Time: 14:12 Fentanyl 25 mcg Intravenous Given by Laura Weston RN twilson 02:14 PM HR=62 bpm, EACZ=235/80 mmhg, SpO2=98.0 % 02:17 PM Time: 14:02LOC: 4 = Oriented but drowsy twilson 02:17 PM Time: 14:02 Patient comfortable and pain free: Yes twilson 02:17 PM Time: 14:17 Versed 1 mg Intravenous Given by Laura Weston RN twilson 02:17 PM Time: 14:17 Fentanyl 25 mcg Intravenous Given by Laura Weston RN twilson 02:18 PM Ultrasoud used for right radial access. twilson 02:18 PM Access obtained by percutaneous puncture. 5Fr 10cm Terumo [place] sheath placed in right Radial artery. [id number] twilson 02:18 PM Time: 14:18 Patient given 2,000 units Heparin, 200 mcg Nitroglycerin, and 2.5 mg Verapamil Intraarterial by Chad Diane MD, [facility]. This is given to reduce risk of vessel spasm and thrombosis. twilson 02:18 PM 5Fr FR 4 catheter inserted over the wire [facility] twilson 02:19 PM HR=61 bpm, UMPT=724/71 mmhg, SpO2=97.0 % 02:19 PM Wire removed twilson 02:20 PM Pressure channel 1 zeroed. 02:21 PM RCA angiography performed in multiple views. twilson 02:21 PM Recorded Pressure: Ao, HR=56, Condition=Condition 1 (Aorta) Ao 93/78/86 02:22 PM Time: 14:22 Oxygen on at 4 L/min per nasal cannula by Laura Weston RN twilson 02:23 PM Wire reinserted, catheter removed. twilson 02:24 PM HR=67 bpm, EFWD=396/68 mmhg, SpO2=92.0 % 02:24 PM Inflation device was opened. twilson 02:24 PM 6Fr RBL 3.5 Convey guide catheter was used to cannulate the PCI vessel successfully. reused? No twilson 02:24 PM Wire removed, intact. twilson 02:24 PM Drawing an ACT. twilson 02:26 PM Recorded Pressure: Ao, HR=62, Condition=Condition 1 (Aorta) Ao 102/79/91 02:28 PM At 14:28 the ACT was 257 seconds. twilson 02:29 PM HR=61 bpm, JBGD=635/68 mmhg, SpO2=97.0 % 02:29 PM PCI lesion in 1st Diagonal. Pre Stenosis: 85 Pre JOSE Flow: 3: Complete and Brisk Flow/Perfusion twilson 02:30 PM Time: 14:30 Heparin 2000 mg Intravenous Given by Laura Weston RN twilson 02:31 PM Lesion found in Right PLB. Pre Stenosis: 50 Pre JOSE Flow: twilson 02:31 PM Right Coronary, Right Posterior Descending Arteries with Right Posterolateral and Acute Marginal branches with 50 % stenosis. If graft is supplying this area, 0 % stenosis twilson 02:31 PM Mid/Distal Left Anterior Descending Coronary Artery and diagonal branches with 85% stenosis. If graft is supplying this area, 0 % stenosis twilson 02:32 PM .014 Zortman 190cm guide wire across target lesion- successful. reused? No twilson :32 PM Time: 14:17LOC: 4 = Oriented but drowsy twilson 02:32 PM Time: 14:17 Patient comfortable and pain free: Yes twilson 02:33 PM 2.75mm x 12mm Synergy drug-eluting stent across target lesion- successful Lot #[id number] twilson :33 PM Stent deployed @ 12 beatriz for 16 seconds twilson :33 PM Time: 14:33 Nitroglycerin 100 mcg Intracoronary Given by Chad Diane MD twilson 02:34 PM HR=67 bpm, BELC=606/79 mmhg, SpO2=92.0 % 02:34 PM Recorded Pressure: Ao, HR=64, Condition=Condition 1 (Aorta) Ao 102/84/94 02:36 PM Stent delivery system removed intact. twilson 02:36 PM Guide wire removed intact. twilson 02:36 PM Wire reinserted. twilson 02:36 PM Guide catheter removed intact. twilson 02:36 PM Lesion found in LMCA. Pre Stenosis: 20 Pre JOSE Flow: twilson 02:37 PM Lesion found in Mid LAD. Pre Stenosis: 20 Pre JOSE Flow: twilson 02:37 PM Lesion found in Ramus. Pre Stenosis: 50 Pre JOSE Flow: twilson 02:38 PM 5Fr Pigtail catheter inserted over the wire DNC twilson 02:38 PM Catheter selectively placed in left ventricle twilson 02:38 PM Recorded Pressure: LV, HR=63, Condition=Condition 1 (Left Ventricle) LV 101/12/22 02:38 PM Wire removed twilson 02:38 PM Bolus angiogram of left Ventricle complete: 12 ml/sec for a total of 25 mls twilson 02:38 PM Recorded Pressure: LV, Ao, HR=68, Condition=Condition 1 (Left Ventricle) LV 100/27/47, (Aorta) Ao 89/63/78 02:39 PM HR=62 bpm, FMYM=501/61 mmhg, SpO2=98.0 % 02:39 PM Wire reinserted. twilson 02:39 PM Catheter removed twilson 02:42 PM Ramus with 50% stenosis. If graft is supplying this area, 0 % stenosis twilson 02:43 PM Left Main Coronary Artery with 20% stenosis twilson 02:43 PM Coronary Dominance: right twilson 02:44 PM Vitals capture stopped. 02:44 PM Procedure completed at 14:44 twilson 02:45 PM Did you address JOSE flow and Dominance? Yes twilson 02:45 PM Sign out completed: Radiation Dose 546.54 mGy Fluoro Time: 4.4 Isovue 370 - 200ml contrast 134 ml given by Chad Diane MD, [facility]. Complications: NoneCardiac Rehab Consult needed: YesConfirmed administered medications: Yes twilson 02:45 PM Isovue 370 - 200ml,1 Bottle(s) used. twilson 02:45 PM Arterial sheath pulled, Vasc Band closure device used and was Successful S/N. twilson 02:45 PM 12 ml air in Vasc Band. twilson 02:45 PM Estimated Blood Loss: minimal twilson 02:45 PM Post ECG NSR twilson 02:45 PM Post Blood Pressure 103/61 twilson 02:45 PM Family placed in consult room. twilson 02:48 PM Time: 14:32 Patient comfortable and pain free: Yes twilson 02:48 PM Time: 14:32LOC: 4 = Oriented but drowsy twilson 02:48 PM 14:48 Post Pulses Bilateral radial 2+ twilson 02:48 PM Information taught Cardiac Cath, PCI, and Vasc Band twilson 02:49 PM Education needs Procedure, Plan of Care, and Responsibilities of Patient in Care twilson 02:49 PM Learning barriers :None twilson 02:49 PM Education Methods Verbal twilson 02:49 PM Education evaluation Able to repeat information twilson 02:49 PM Site status No bleeding/hematoma - Rt Wrist as reported by Braulio Barajas RT (R) at 14:49 twilson 02:52 PM Report given to Jeff CARRANZA Pt taken to 2N Room #12. 14:52 twilson 02:52 PM Plavix, Effient or Brilinta given No twilson 02:52 PM Patient takes Brillinta daily and received 90 mg at 8:25am. twilson 02:52 PM Delay to floor No twilson 02:52 PM Patient out of room: 14:52 twilson Complications Complication None None Hemodynamics Pressures Site Systolic/A Wave Diastolic/V Wave Mean AO 93 78 86 AO 102 79 91 AO 102 84 94 LV 101 12 22 LV 100 27 47 AO 89 63 78 Post Procedure Information Blood Pressure: 103/61 mmHg Rhythm: NSR Post procedural instructions were given Closure Device Time Device Success/Fail 12/15/2017 2:45:00 PM Mechanical Compression Successful Site Checks Time Location Status Staff Sheath In? Note 02:49 PM Rt Wrist No bleeding/hematoma Braulio Barajas RT (R) Pulses Time Site Pre-Procedure Post-Procedure Note 12/15/2017 2:00:00 PM Bilateral radial 2+ 2:48:00 PM Bilateral radial 2+ Updated by RT Jamila LandrumR) on 12/15/2017 2:58:38 PM electronically signed on 12/15/2017 2:59:32 PM with status of Final
--- NOTE | 2017-12-15 16:06 | Event Note ---
Date of Encounter: 12/15/17 Time of Encounter: 16:05 Patient was seen and examined. Vitals are stable no active chest pain no palpitation. Was taking to heart catheter and stent on left cardiac artery was placed. Continue to monitor
[2017-12-15] MEDS: Insulin LISPRO 300 UNITS/3 ML VIAL SQ SCH (17:51)
[2017-12-15] MEDS ORDERED: Insulin LISPRO 300 UNITS/3 ML VIAL SQ SCH (21:00)
[2017-12-16] MEDS: Famotidine 20 MG/2 ML VIAL IVP SCH (06:30)
[2017-12-16] MEDS: Aspirin 81 MG TAB.CHEW PO SCH (08:10)
[2017-12-16] MEDS: Metoprolol XL (24 HR) Succ 25 MG TAB.ER.24H PO SCH (08:10)
[2017-12-16] MEDS: *HR* Ticagrelor 90 MG TABLET PO SCH (08:11)
[2017-12-16] MEDS: Insulin LISPRO 300 UNITS/3 ML VIAL SQ SCH ×2 (08:11→13:39)
[2017-12-16 09:06] LABS: Hematocrit 43.2 % (37.5-50.1); Hemoglobin 13.7 g/dL (12.9-16.9); Mean Corpuscular HGB Conc 31.7 g/dL (31.6-35.5); Mean Corpuscular Hemoglobin 27.5 pg (28.0-33.3); Mean Corpuscular Volume 86.6 fL (83.0-100.0); Mean Platelet Volume 10.1 fL (9.4-12.4); Platelet Count 223 K/mcL (140-400); Red Blood Count 4.99 M/mcL (4.19-5.50); Red Cell Distribution Width 13.4 % (11.5-14.5)
[2017-12-16 09:23] LABS: BUN/Creatinine Ratio 16 (6-26); Blood Urea Nitrogen 12 mg/dL (6-20); Calcium 8.9 mg/dL (8.6-10.3); Carbon Dioxide 24 mEq/L (23-29); Chloride 105 mEq/L (98-107); Glucose 222 mg/dL (70-105); Osmolality,Calculated 291 (280-300); Potassium 3.7 mEq/L (3.5-5.1); Sodium 137 mEq/L (136-145); eGFR For African Americans > 60 (> 60); eGFR For Non-African Americans > 60 (> 60)
--- NOTE | 2017-12-16 10:18 | Cardiology Progress Note ---
Date of Encounter: 12/16/17 Time of Encounter: 10:00 Assessment and Plan (1) NSTEMI (non-ST elevated myocardial infarction) Current Visit: Yes Status: Acute Per cardiology: -Troponin 0.04, 0.07 x 2, 0.06. -Recent inferior STEMI 11/28/17 with ALEXA to mid and distal RCA. Reports compliance with DAPT (ASA and Brilinta). Continue Statin, BB, ACEi. -S/p LHC yesterday with ALEXA to diagonal. -TTE 11/2017 LVEF 40%. Segmental LV systolic dysfunction. Mild LVDD. Mild MR. Mild phtn. -Denies chest pain. -Educated on dual anti-platelet therapy uninterrupted for at least one year, states understanding. Patient reports has assistance card for brilinta and states will be affordable for at least 6 months. -Right radial access site without hematoma or ecchymosis. Right radial access site management education reviewed with patient. States understanding. -Cardiology will sign off and will follow in outpatient setting. Follow up set. Of note, recommend holter at discharge, see PAF. (2) CAD (coronary artery disease) Current Visit: Yes Status: Acute Per cardiology: -As above, recent STEMI with ALEXA to RCA. Stage 1st diag yesterdau. ASA, Brilinta , Statin, BB, ACEi. Qualifiers: Coronary Disease-Associated Artery/Lesion type: [place] artery [place] vs. transplanted heart: [place] heart Associated angina: without angina Qualified Code(s): I25.10 - Atherosclerotic heart disease of [place] coronary artery without angina pectoris (3) Ischemic cardiomyopathy Current Visit: No Status: Acute Per cardiology: -EF 40% on TTE. -Euvolemic on exam. -Continue BB, ACEi. Recheck TTE as outpt s/p revascularization. (4) PAF (paroxysmal atrial fibrillation) Current Visit: No Status: Acute Per cardiology: -During last hospital stay, pt had a brief episode PAF with aberrancy on tele 11/28, suspected secondary to reperfusion. 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 -Pt reports palpitations and fluttering. -No PAF has been noted. EKG and telemetry shows SR with PVCs. BP currently will not allow BB increase. -Will order holter monitor to be placed at discharge to evaluate for any a.fib. -Will monitor in outpatient setting. Discussion w patient/family: The assessment and plan as outlined above was discussed with the patient who expressed understanding and agreement. All questions were answered. Thank you for involving us in the care of your patient. Please call with any questions. Discussed and reviewed with . Subjective Principal diagnosis: NSTEMI, chest pain Interval history: Patient is s/p PCI yesterday. Denies chest pain. Denies issues using right wrist. Objective Vital Signs, Last 4 Hours Temp Pulse Resp BP Pulse Ox 12/16/17 06:57 98.2 F 57 17 120/88 97 General: Conversant, No Apparent Distress HEENT: Atraumatic, Normocephaly, Mucus Membranes Moist Neck: No JVD, Normal carotid pulses Cardiac: Reg Rate and Rhythm, Normal S1 and S2, No Murmur Lungs: Normal Breath Sounds, No Wheeze, Rales, Rhonchi Neuro: Alert and responsive, No focal deficits noted Abdomen: Soft, Non-Tender Skin: No rashes noted on visualized skin, Other (Right radial access site without hematoma or ecchymosis. ) Musculoskeletal: No Chest Wall Tenderness Extremities: No Clubbing, No Cyanosis, No Edema, Normal Pulses Results 12/16/17 08:40 12/16/17 08:40 Lab Results Active Medications Aspirin (Aspirin) 81 mg PO DAILY [facility] Stop: 06/16/18 09:01 Last Admin: 12/16/17 08:10 Dose: 81 mg Famotidine (Pepcid) 20 mg IVP Q12HR RYLIE PRN Reason: Protocol Stop: 06/16/18 06:01 Last Admin: 12/16/17 06:30 Dose: 20 mg Insulin Human Lispro (Humalog) 0 units SQ TIDAC RYLIE PRN Reason: Protocol Stop: 06/16/18 16:31 Last Admin: 12/16/17 08:11 Dose: Not Given Insulin Human Lispro (Humalog) 0 units SQ HS [facility] PRN Reason: Protocol Stop: 06/16/18 21:01 Last Admin: 12/15/17 22:02 Dose: Not Given Lisinopril (Zestril) 2.5 mg PO DAILY RYLIE PRN Reason: Protocol Stop: 06/16/18 09:01 Last Admin: 12/16/17 08:10 Dose: 2.5 mg Metoprolol Succinate (Toprol Xl) 25 mg PO DAILY RYLIE Stop: 06/16/18 09:01 Last Admin: 12/16/17 08:10 Dose: 25 mg Naloxone HCl (Narcan) 0.4 mg IVP Q2MIN PRN PRN Reason: SEE COMMENTS Stop: 06/16/18 01:57 Nitroglycerin (Nitroglycerin) 0.4 mg SL Q5MIN PRN PRN Reason: Chest Pain Stop: 06/16/18 02:01 Rosuvastatin Calcium (Crestor) 20 mg PO HS RYLIE Stop: 06/16/18 02:01 Last Admin: 12/15/17 21:59 Dose: 20 mg Ticagrelor (Brilinta) 90 mg PO BID RYLIE Stop: 06/16/18 09:01 Last Admin: 12/16/17 08:11 Dose: 90 mg Laboratory Tests 12/16/17 12/16/17 08:40 08:40 Hgb 13.7 Creatinine 0.77 - Imaging and Cardiology Chest Xray: report reviewed Echo: report reviewed Cardiac cath: report reviewed - EKG Interpretation EKG results cardiology: other (Telemetry reviewed with average HR previous 12 hours noted to be 60, SR. PVCs and PACs noted.) Consult Discharge Plan - Plan Referrals: Lisa Camacho CNP [Primary Care Provider] - 12/24/17 9:00 am Chad Diane MD [Partnered Physician] - (Office will call patient at home with follow up appointment)
[2017-12-16 11:34] VITALS: BP 103/66
--- NOTE | 2017-12-16 11:34 | Discharge Summary ---
- NOTES TO OUTPATIENT PROVIDER Notes to Outpatient Provider: Follow with assistant golf course superintendent as already scheduled. Holter monitor set up before discharge. Follow-up with PCP within one week Orders not resulted at time of discharge: Pending orders 12/15/17 15:24 ECG 12 lead ECG [ECG] Stat 12/16/17 06:00 ECG 12 lead ECG [ECG] AM 0600 12/16/17 10:28 ECG 48 holter monitor setup [ECG] Routine Date of Encounter: 12/16/17 Time of Encounter: 11:32 - Discharge Diagnosis (1) NSTEMI (non-ST elevated myocardial infarction) Priority: Primary Status: Acute (2) Ischemic cardiomyopathy Priority: Primary Status: Acute (3) CAD (coronary artery disease) Priority: Primary Status: Acute Qualifiers: Coronary Disease-Associated Artery/Lesion type: [place] artery [place] vs. 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 Herbert is a 47 year old male patient with history of diabetes mellitus, hypertension, CAD, recent heart catheter 11/27/2017 in RCA got admitted for [place]ST [place] and had repeat heart catheter with stent the diagonal. Police Detention Attendant's okay to discharge patient on dual antiplatelet therapy and Holter monitor with follow -up appointment in his office soon. It was advised to hold metformin for 2-3 days after the procedure and check blood glucose level a persistent more than 160 then a started low dose glimepiride but resume metformin in 3 days. For any further question consult PCP. At the time of discharge patient is stable, able to ambulate and tolerate oral diet no chest pain with normal sinus rhythm. Discharge discussed with: patient, nurse - Time Spent with Patient Total time spent providing and/or coordinating discharge services: - Discharge Medications Home Medications: metFORMIN [Glucophage] 500 mg PO BID PRN 09/02/16 [History] Mv,Minerals/FA/Lycopene/Ginkgo [One Daily For Men 50+ Adv Tab] 1 tab PO DAILY [History] Potassium Citrate [Urocit-K] 1,080 mg PO BID 11/28/17 [History] Aspirin 81 mg PO DAILY #30 tab.chew 11/30/17 [Rx] Lisinopril [Zestril] 2.5 mg PO DAILY #30 tablet 11/30/17 [Rx] Metoprolol XL (24 HR) Succ [Toprol Xl] 25 mg PO DAILY #30 tab.er.24h 11/30/17 [ Rx] Nitroglycerin 0.4 mg SL Q5MIN PRN #30 tab.subl 11/30/17 [Rx] Rosuvastatin [Crestor] 20 mg PO HS #30 tablet 11/30/17 [Rx] Ticagrelor [Brilinta] 90 mg PO BID #60 tablet 11/30/17 [Rx] Allergies/Adverse Reactions: 3 Allergy/AdvReac Type Severity Reaction Status Date / Time No Known Allergies Allergy Verified 12/15/17 07:26 Date of admission: 12/15/17 05:39 Primary care physician: Lisa Camacho CNP Consults: 12/16/17 07:53 Consult to Cardiac Rehabilitation-Phase1 [CONS] Routine Comment: Reason for Consult: NSTEMI, s/p PCI Call Completed: No - Constitutional Vitals: Temp Pulse Resp BP Pulse Ox 98.2 F 57 17 120/88 97 12/16/17 06:57 12/16/17 06:57 12/16/17 06:57 12/16/17 06:57 12/16/17 06:57 General appearance: Present: A&O X 3, pleasant, no acute distress, obese Exam: General appearance: No acute distress, A&O X 3 Head exam: Atraumatic Eye exam: EOMI, PERRLA ENT exam: Moist oral mucosa Neck nontender, supple Respiratory exam: Clear to auscultation bilaterally Cardiovascular exam: Regular rate and rhythm, no systolic murmur Abdominal exam: Soft, nontender, nondistended, positive bowel sounds Extremities exam: No calf tenderness, no pedal edema Present: Skin-no rash, warm, dry, intact Neurological exam: Alert, awake, oriented 3, CN II-XII intact, no focal deficits. No facial droop. Normal speech. Normal gait - Patient Status Disposition: Home, Self-Care Condition: Good Overall status at discharge: patient is back to baseline - Discharge Instructions Follow Up With: Lisa Camacho CNP [Primary Care Provider] - 12/24/17 9:00 am Chad Diane MD [Partnered Physician] - (Office will call patient at home with follow up appointment) - Diet and Activity Activity: as per the cardiac rehab Diet: diabetic diet, low fat, low cholesterol, low salt diet
== END 2017-12-16 14:11 | disposition home or self-care (01) | DRG 247 ==
LOC: 2NNU 22:48 → EMEROO 22:48 → 2NNU 12-15 01:30
PROVIDERS: ADMIT Family Medicine; ATTEND Family Medicine

== ENCOUNTER 2020-02-28 15:21 | Observation (INO) ==
[2020-02-28] MEDS ORDERED: Aspirin 325 MG TABLET PO ONE (16:02)
[2020-02-28 16:28] LABS: Basophils % 0.1 %; Eosinophils # 0.1 K/mcL (0.0-0.6); Eosinophils % 1.6 %; Hematocrit 42.6 % (37.5-50.1); Hemoglobin 13.2 g/dL (12.9-16.9); Immature Granulocytes % 0.5 % (0-4); Lymphocytes # 2.9 K/mcL (0.6-4.6); Mean Corpuscular Hemoglobin 27.6 pg (28.0-33.3); Mean Corpuscular Volume 89.1 fL (83.0-100.0); Mean Platelet Volume 10.7 fL (9.4-12.4); Monocytes # 0.5 K/mcL (0.0-1.3); Monocytes % 5.9 %; Neutrophils # 4.1 K/mcL (1.6-8.9); Platelet Count 191 K/mcL (140-400); Red Blood Count 4.78 M/mcL (4.19-5.50); Red Cell Distribution Width 14.5 % (11.5-14.5); Segmented Neutrophils % 53.9 %; White Blood Count 7.6 K/mcL (4.3-11.1)
[2020-02-28 16:29] LABS: BUN/Creatinine Ratio 21 (6-26); Blood Urea Nitrogen 16 mg/dL (6-20); Calcium 9.8 mg/dL (8.6-10.3); Carbon Dioxide 29 mEq/L (23-29); Chloride 107 mEq/L (98-107); Glucose 139 mg/dL (70-105); Osmolality,Calculated 295 (280-300); Potassium 3.8 mEq/L (3.5-5.1); Sodium 141 mEq/L (136-145); eGFR For African Americans > 60 (> 60); eGFR For Non-African Americans > 60 (> 60)
[2020-02-28 16:30] LABS: Troponin I < 0.03 ng/mL (< 0.04)
[2020-02-28] MEDS ORDERED: Naloxone 0.4 MG/ML INJ IVP PRN (17:08)
[2020-02-28] MEDS ORDERED: D5% in Water 1,000 ML IVC PRN (17:43)
[2020-02-28] MEDS ORDERED: *HR* Dextrose 50 % in Water (Vial) 50 ML VIAL IVP PRN (17:43)
[2020-02-28] MEDS ORDERED: Dextrose Gel 15 GM/37.5 ML TUBE PO PRN ×2 (17:43)
[2020-02-28] MEDS ORDERED: Perflutren Lipid Microsphere 1.3 ML in 0.9 % Sodium Chloride 8.7 ML IVP PRN (17:52)
[2020-02-28] MEDS ORDERED: Nitroglycerin 0.4 MG TAB.SUBL SL PRN (17:57)
[2020-02-28] MEDS: *HR* Heparin 5,000 UNIT/ML VIAL SQ SCH ×2 (20:42→22:00)
[2020-02-28] MEDS ORDERED: Insulin LISPRO 300 UNITS/3 ML VIAL SQ SCH (21:00)
[2020-02-29 02:56] LABS: Basophils % 0.3 %; Eosinophils # 0.2 K/mcL (0.0-0.6); Eosinophils % 1.7 %; Hematocrit 41.2 % (37.5-50.1); Hemoglobin 13.1 g/dL (12.9-16.9); Immature Granulocytes % 0.5 % (0-4); Lymphocytes # 3.3 K/mcL (0.6-4.6); Lymphocytes % 37.6 %; Mean Corpuscular HGB Conc 31.8 g/dL (31.6-35.5); Mean Corpuscular Hemoglobin 28.7 pg (28.0-33.3); Mean Corpuscular Volume 90.2 fL (83.0-100.0); Mean Platelet Volume 10.5 fL (9.4-12.4); Monocytes # 0.5 K/mcL (0.0-1.3); Monocytes % 5.9 %; Neutrophils # 4.7 K/mcL (1.6-8.9); Platelet Count 169 K/mcL (140-400); Red Blood Count 4.57 M/mcL (4.19-5.50); Red Cell Distribution Width 14.5 % (11.5-14.5); White Blood Count 8.6 K/mcL (4.3-11.1)
[2020-02-29 03:18] LABS: BUN/Creatinine Ratio 30 (6-26); Blood Urea Nitrogen 21 mg/dL (6-20); Calcium 8.8 mg/dL (8.6-10.3); Carbon Dioxide 26 mEq/L (23-29); Chloride 107 mEq/L (98-107); Chol/HDL Ratio 3.1 (0-4.9); Cholesterol 110 mg/dL (< 200); Glucose 198 mg/dL (70-105); HDL Cholesterol 35 mg/dL (40-59); LDL Cholesterol,Calculated 22 mg/dL (< 100); Magnesium 1.8 mg/dL (1.6-2.6); Osmolality,Calculated 297 (280-300); Phosphorous 3.6 mg/dL (2.7-4.5); Sodium 139 mEq/L (136-145); Triglycerides 265 mg/dL (< 150); eGFR For African Americans > 60 (> 60); eGFR For Non-African Americans > 60 (> 60)
[2020-02-29] MEDS ORDERED: Regadenoson 0.4 MG/5 ML SYRINGE IVP ONE (07:19)
[2020-02-29] MEDS ORDERED: Aspirin 81 MG TAB.CHEW PO SCH (09:00)
[2020-02-29] MEDS: Insulin LISPRO 300 UNITS/3 ML VIAL SQ SCH ×3 (10:57→17:00)
[2020-02-29] MEDS ORDERED: 0.9 % Sodium Chloride 1,000 ML ONE (13:57)
[2020-02-29] MEDS ORDERED: ISOVUE-370 200 ML INFUS..BTL ONE (13:57)
[2020-02-29] MEDS ORDERED: *HR* Heparin 10,000 UNIT/10 ML VIAL ONE (13:57)
[2020-02-29] MEDS ORDERED: Nitroglycerin 1,000 MCG/10 ML VIAL IV ONE (13:57)
[2020-02-29] MEDS ORDERED: Heparin 1,000 UNITS/500 mL 500 ML ONE (13:57)
[2020-02-29] MEDS: *HR* Heparin 5,000 UNIT/ML VIAL SQ SCH (14:30)
[2020-02-29] MEDS ORDERED: *HR* FentaNYL (PF) 100 MCG/2 ML VIAL ONE (14:39)
[2020-02-29] MEDS ORDERED: *HR* Midazolam HCl 2 MG/2 ML VIAL ONE (14:40)
[2020-02-29 18:41] VITALS: BP 129/86
== END 2020-02-29 18:28 | disposition home or self-care (01) ==
LOC: EMEROOARM 15:21 → 3BNU 15:21 → SUATTDRO 17:11 → 3BNU 18:05
PROVIDERS: ADMIT Internal Medicine; ATTEND Family Medicine